=== PATIENT | female | born 1945 | race Caucasian/White ===

== ENCOUNTER 2017-10-01 11:34 | Inpatient (IN) | payer MEDICARE, SELFPAY ==
[2017-10-01] VITALS (9 sets, daily range): BP systolic 117–151; BP diastolic 44–86; PULSE 66–110; RESP 14–18; TEMP 36.6–37.3; O2SAT 96–99; BMI 30.2; BMI 30.1
[2017-10-01 12:21] LABS: Absolute Lymphocyte Count 1.19 X10^3/ul (0.83-4.51); Absolute Neutrophil Count 2.5 X10^3/uL (2.0-7.7); Basophil# 0.01 X10^3/uL; Basophil% 0.2 % (0-1); Eosinophil# 0.13 X10^3/uL; Hematocrit 26.2 % (37-47); Hemoglobin 9.2 g/dl (12.0-15.0); Lymphocyte # 1.19 X10^3/ul (4.0); Lymphocyte % 27.7 % (19-41); Mean Corp Hgb Conc 35.1 g/gl (32-36); Mean Corpuscular Hgb 35.7 pg (27.0-32.0); Mean Corpuscular Volume 101.6 fL (81-99); Mean Platelet Vol. 8.2 fl (6.2-12.0); Monocyte# 0.42 X10^3/uL; Monocyte% 9.8 % (0-10); Neutrophil # 2.53 X10^3/uL (2.7-7.7); Neutrophil % 59.1 % (47-70); Platelet Count 124 K/mm3 (150-450); RBC Distribution Width SD 61.7 fl (35.1-43.9); Red Blood Count 2.58 M/mm3 (4.2-5.4); White Blood Count 4.3 K/mm3 (4.4-11.0)
[2017-10-01 12:31] LABS: ALB/GLOB Ratio 0.7 RATIO (0.9-2.4); AST(SGOT) 54 U/L (15-37); Alanine Aminotransfer ALT/SGPT 46 U/L (12-78); Albumin, Serum 2.8 g/dL (3.4-5.0); Alkaline Phosphatase 105 U/L (45-117); Anion Gap 9 (5-15); BUN 23 mg/dL (7-18); BUN/Creat Ratio 22.8 RATIO (10-20); Chloride 107 mmol/L (98-107); Creatinine, Serum 1.01 mg/dL (0.55-1.02); EST Glomerular Filtration Rate 57 mL/min (>60); Est Glom Filt Rate - Afr Amer 69 mL/min (>60); Estimated Creatinine Clearance 37.99 ml/min; Globulin 4.2 g/dL (2.2-4.2); Glucose 224 mg/dL (70-110); Potassium 3.5 mmol/L (3.5-5.1); Sodium Level 141 mmol/L (136-145)
[2017-10-01 12:37] LABS: POSITIVE COUNT NO; POSITIVE DIFFERENTIAL NO; POSITIVE MORPHOLOGY NO
--- NOTE | 2017-10-01 12:54 | ED.DCSUM_ITS ---
- ER Visit Summary Date of Service: 10/01/17 Chief Complaint: Bleeding] History of Present Illness: The patient is a 71 F [resents to the emergency department chief complaint rectal bleeding that started this morning. Patient has a history of a rectal cancer with metastasis to the liver. Patient had CAT scans of the abdomen and chest that were performed earlier in the week and incidentally was found to have a pulmonary embolism. Patient was started on Xarelto couple days ago. Patient states her last chemotherapy was 2 weeks ago. Patient denies any abdominal pain. She denies feeling lightheaded or dizzy. She denies any chest pain or shortness of breath.] Physical Examination: [HEENT-PERRLA, EOMI. Cranial nerves II through XII grossly intact. TMs clear. Mucous membranes moist. No adenopathy. Cardiovascular-regular rate and rhythm without murmur or ectopy Lungs-clear to auscultation, chest wall stable without crepitus or subcu emphysema Abdomen-normoactive bowel sounds, soft, nontender, no rebound or rigidity, no peritoneal signs. Rectal exam-the rectum is thickened and patient is noted to have gross blood on exam. Extremities-intact ?4, normal range of motion, normal pulses, atraumatic] Test Results: [CBC with differential obtained showed a white blood cell count 4.3, hemoglobin 9.2, hematocrit 26, platelets 124. Chemistries unremarkable. LFTs unremarkable. Orthostatic vital signs pending] Emergency Department Course and Treatment: I discussed case initially with Dr. Suzanna Laura who is the surgeon on-call who was comfortable with keeping the patient at this hospital for further workup and evaluation.] Treatment Plan: [Admit] Disposition: [Admit] Impression: [Lower GI bleeding-stable] This note was generated with [employer] dictation software. It may contain incorrect words, spelling, and punctuation that were not noted in review of the chart prior to signing ED Disposition - Plan for ED Patient: Chief Complaint: GI Bleed Referrals: Annetta Carey DO [Primary Care Provider] -
--- NOTE | 2017-10-01 13:12 | HP.PCM_ITS ---
Problem List (1) GI bleed Status: Acute Qualifiers: GI bleed type/associated pathology: anorectal hemorrhage Qualified Code(s) : K62.5 - Hemorrhage of anus and rectum (2) Adenocarcinoma of sigmoid colon Status: Chronic (3) HTN (hypertension) Status: Chronic Qualifiers: Hypertension type: essential hypertension Qualified Code(s): I10 - Essential (primary) hypertension (4) Diabetes mellitus, type II Status: Chronic Qualifiers: Diabetes mellitus complication status: with unspecified complications Diabetes mellitus dedicated intermodal truck driver insulin use: with fci use Qualified Code(s) : E11.8 - Type 2 diabetes mellitus with unspecified complications; Z79.4 - prison (current) use of insulin (5) Depression with anxiety Status: Chronic History of Present Illness Date of Admission: 10/01/17 Chief Complaint: Rectal bleeding- 1 day The patient is a 71 year old F with past medical history of rectal cancer status post chemotherapy, follows up with [facility] oncology , recently diagnosed with pulmonary embolism, started on Xarelto 2 days ago comes in with complaints of rectal bleed. Patient was woken up from bed with a advised to move her bowels, and did not quite make it to the bathroom when she started to be incontinent of blood. Bright red in color, filled her whole toilet bowel, associated with dizziness and palpitations but no chest pain. She denied any abdominal cramps or discomfort. Vitals in the ED showed temperature of 90 8.2F, heart rate of 110, blood pressure is 138/44, patient was positively orthostatic, SPO2 was 98% on room air Laboratory investigations showed Hb of 9.2, with a hemoglobin was 10.6, WBC count was 4.3, platelets of 124, sodium 141 potassium 3.5 chloride 107 bicarbonate 25 creatinine 101 BUN 23. She recently had a CT scan of the abdomen/pelvis and chest done in the [facility] system was diagnosed incidentally with pulmonary embolism. Her last chemotherapy was 2 weeks ago. Past Medical History Past Medical History (Chronic Problems): Chronic Problems Normochromic normocytic anemia (Chronic) Colon cancer metastasized to liver (Chronic) Colon cancer metastasized to lung (Chronic) Adenocarcinoma of sigmoid colon (Chronic) HTN (hypertension) (Chronic) Diabetes mellitus, type II (Chronic) Depression with anxiety (Chronic) Allergies metoclopramide [From Reglan] Adverse Reaction (Verified 10/01/17 11:36) Other ANXIETY, RESTLESSNESS Home Medications: Ambulatory Orders Medication Instructions Recorded Ramipril [Altace] 10 mg PO DAILY 03/02/15 Metformin HCl [Metformin HCl ER] 1,000 mg PO DAILY 04/18/16 Insulin Aspart [Novolog Flexpen] 10 units SC TID 12/08/16 Venlafaxine HCl [Effexor Xr] 112.5 mg PO DAILY 01/24/17 Clopidogrel Bisulfate [Plavix] 75 mg PO DAILY 01/25/17 Insulin Detemir [Levemir FlexPen] 100 units SC DAILY 09/23/17 Linacolotide [Linzess] 145 mcg PO DAILY 09/23/17 Omeprazole [Prilosec] 20 mg PO DAILY 09/23/17 Triamterene [Dyrenium] 25 mg PO DAILY 09/23/17 Surgical History: hysterectomy, - - R TKR, Hysterectomy/BLSOO. 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 Denies: Anorexia, Chills, Fever, Night Sweats, Weight Change Eyes: Denies: Blurred vision, Cataracts, Conjunctivae Inflammation, Pain, Redness HEENT: Denies: Difficulty Hearing, Difficulty Swallowing, Head Aches, Hearing Changes, Sinus Congestion, Sinus Drainage Cardiovascular: Reports: Light Headedness, Palpitations. Denies: Chest Pain, Claudication, Chest Pressure Respiratory: Denies: Cough, Shortness of breath at rest, Shortness of breath upon exertion, Sputum production Gastrointestinal: Reports: Diarrhea, Hematochezia. Denies: Abdominal Pain, Hematemesis, Nausea, Vomiting Genitourinary: Denies: Dysuria, Frequency, Incontinence Gynecological: Denies: Breast symptoms Musculoskeletal: Denies: Joint Pain, Joint stiffness, Joint swelling, Joint Tenderness Skin: Denies: Rash, Wounds Neurological: Denies: Difficulty swallowing, Focal weakness, Numbness, Tingling Psychiatric: Denies: Anxiety, Depression, Homicidal Ideations, Suicidal Ideations Hematologic/ Lymphatic: Denies: Easy Bruising, Easy Bleeding VTE Information - Inpt Only VTE Present on Admission: No VTE Mechan Device Prophylaxis: SCD's VTE Pharm Prophylaxis ordered?: No Reason prophylaxis not ordered:: Medical Contraindication - ACUTE GI BLEED Patient Problems: Active and Suspected Problems GI bleed (Acute) - Physical Exam General: Alert, Oriented x3, Cooperative, No apparent distress HEENT: Atraumatic, PERRLA, EOMI, Normocephalic Oral: Moist Mucosa Neck: Supple Lungs: Clear to auscultation, Normal air movement Cardiovascular: Regular rate, Regular Rhythm, Normal S1, Normal S2, No murmurs Abdomen: Bowel Sounds Present, Soft, Non Tender, Non-Distended Extremities: No edema Skin: No rashes, No breakdown Musculoskeletal: No Tenderness to Palpation of Joints or Extremities Lymphatic: No Cervical, Supraclavicular, or Inguinal Adenopathy Neurological: Cranial nerves II-XII grossly intact Psych/Mental Status: Normal Affect, Appropriate Vital Signs Temp Pulse Resp BP Pulse Ox 98.2 F 68 17 145/70 H 98 10/01/17 11:36 10/01/17 12:56 10/01/17 11:36 10/01/17 12:56 10/01/17 11:36 Oxygen Delivery Method Room Air Weight: 72.5 kg Body Mass Index (BMI) 30.2 Finger Stick Blood Glucose 340 Laboratory Tests Past 24 Hrs 10/01/17 10/01/17 10/01/17 12:05 12:05 12:25 WBC 4.3 L RBC 2.58 L Hgb 9.2 L Hct 26.2 L MCV 101.6 H MCH 35.7 H MCHC 35.1 RDW 17.0 H RDW Differential 61.7 H Plt Count 124 L MPV 8.2 Immature Gran % (Auto) 0.200 Neut % (Auto) 59.1 Lymph % (Auto) 27.7 [place] % (Auto) 9.8 Eos % (Auto) 3.0 Baso % (Auto) 0.2 Absolute Neuts (auto) 2.5 Absolute Lymphs (auto) 1.19 Total Counted Not Reportable Sodium 141 Potassium 3.5 Chloride 107 Carbon Dioxide 25.0 Anion Gap 9 BUN 23 H Creatinine 1.01 Estim Creat Clear Calc 37.99 Est GFR (MDRD) Af Amer 69 Est GFR (MDRD) Non-Af 57 L BUN/Creatinine Ratio 22.8 H Glucose 224 H Calcium 9.0 Total Bilirubin 0.30 AST 54 H ALT 46 Alkaline Phosphatase 105 Total Protein 7.0 Albumin 2.8 L Globulin 4.2 Albumin/Globulin Ratio 0.7 L Blood Type Pending Antibody Screen Pending Assessment/Plan Active and Suspected Problems GI bleed (Acute) 71-year-old female with past medical history of metastatic colon cancer with metastases to liver and lung, following with oncology in the [facility] system, hypertension, type II DM, comes in with complaints of diarrhea and rectal bleeding ongoing for 1 day. 1. Acute GI bleed, likely lower, history of metastatic colon cancer secondary to recently started anticoagulation for PE, Xarelto. Plan:, Admit patient to PCU, monitor vitals closely, H&H every 6 hourly, type and crossmatch against 2 units of blood and hold, Xarelto, general surgery consulted - Dr. Suzanna Laura-agreed to see patient. I explained in depth with patient and her family about the plan of care, aware that if she continues to bleed, we will transfuse, possible intervention including colonoscopy. They are also aware that we will stop the Xarelto and agree to the plan. 2. Recent pulmonary embolism, discovered incidentally on chest CT, status post anticoagulation with heparin and Xarelto 2 days ago, would hold Xarelto because risks of bleeding is higher. Patient voiced understanding and agrees to the plan. 3. Hypertension, controlled, would hold home medications in light of ongoing bleeding, will monitor vitals closely and give as needed hydralazine 4. Type 2DM, on insulin, will continue home regimen with Accu-Cheks and insulin sliding scale 5. DVT PPx - SCDs- no chemoprophylaxis on account of GI bleed 6. Code status: Spent more than 15 minutes discussing status with the patient, explaining the differences between full code, DNR CCA and DNR CC, answered all questions and patient opted for DNR-CC, confirmed by patient that HCPNAHUN is her daughter. Her daughter has a living will paperwork as well as advanced directives. Code Visit Inpatient E&M: 03215 Init Hosp L3
[2017-10-01] MEDS: 0.9% Normal Saline 1,000 ML 125 ML IV ×2 (13:37→21:02)
--- NOTE | 2017-10-01 14:33 | PCM.CONS.B ---
- Consult Date of Consult: 10/01/17 - Reason for Consult CHIEF COMPLAINT: rectal bleeding HPI: 71 y/o WF with metastatic colon cancer to the liver, recently diagnosed with PE, on xarelto, presents with rectal bleeding and low Hgb ?? s/p 6 cycles of FOLFOX (02/07/2017 - 05/19/17) with NV, now on xeloda (2 weeks on, 1 week off, last dose supposed to be 09/23, but she stopped earlier on 09/21 due to n/v/diarrhea/dehydration/tiredness) and Avastin since 07/08/17 (next dose on 09/30) CT 09/28/16 showed increased size of lung nodules but decreased size in liver mets, also incidentally found to have subacute to chronic pulmonary embolism in the right lower lobe basilar segmental (common channel) and subsegmental artery level (new since Jun 2017) Lower extremity doppler exam to look for DVT was negative (09/29/17) She tolerated heparin gtt without signs of bleeding. She was discharged on 09/29 with Xarelto for AC. The Plavix for which she was taking for a possible stroke 20 years ago has been discontinued. Had GI bleed in past with avastin, but this resolved and she was restarted on Avastin, presently off for a week due to patient's request. ? PAST MEDICAL HISTORY Anxiety state, unspecified ? Coronary artery disease ? 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 Hemorrhage of rectum and anus ? HTN (hypertension) ? Internal hemorrhoids without mention of complication ? Rash and other nonspecific skin eruption ? Rectal cancer ? Type II or unspecified type diabetes mellitus without mention of complication, not stated as uncontrolled ? Unspecified constipation ? Unspecified essential hypertension ? Unspecified hemorrhoids without mention of complication ? PAST SURGICAL HISTORY COLONOSCOP W/ OR W/O BRSH SPEC ? 09/21/07 EGD W/O OR W/BRUSH/WASH ? 06/10/16 HEART CATHETERIZATION ? 2013 HYSTEROSCOPY, SURG; REMOVE FB ? 1994 KNEE RIGHT OP SURGERY 1998 RIGHT TOTAL ABDOM HYSTERECTOMY ? 1994 TOTAL KNEE REPLACEMENT 2003 RIGHT TUNNEL VAD W SUB Q PORT >=5 Right 02/16/2017 ? FAMILY HISTORY Cancer Maternal Grandmother ? Heart Maternal Grandmother ? Heart Maternal Uncle ? Hypertension Mother ? Stroke Mother ? Heart Mother ? Diabetes Sister SOCIAL HISTORY ? Marital status: Smoking status: Never Smoker ? Smokeless status: Never Used Alcohol use: No Drug use: No Sexual activity: Not Currently ? ALLERGIES Ritalin [Methylphen* Other: See Comments jumpy CURRENT?MEDICATIONS rivaroxaban (XARELTO) 15 mg (42)- 20 mg (9) DsPk capecitabine (XELODA) 500 mg tablet 3 tabs (1500mg) in the AM, 2 tabs (1000mg) in the PM. Take for 14 days, then 1 week off mirtazapine (REMERON) 15 mg tablet Take 15 mg by mouth daily at bedtime. ondansetron (ZOFRAN) 8 mg tablet Take 1 tablet by mouth every 8 hours as needed for Nausea/Vomiting. venlafaxine ER (EFFEXOR XR) 37.5 mg 24 hr capsule ? metFORMIN ER (GLUMETZA) 1,000 mg 24 hr tablet ? LEVEMIR FLEXTOUCH 100 unit/mL (3 mL) inpn injection ? triamterene-hydrochlorothiazide (MAXZIDE-25) 37.5-25 mg per tablet ? ramipril(ALTACE 10 MG CAP) Take one(1) capsule daily. REVIEW OF SYSTEMS: GENERAL: Negative for weight loss, malaise or fevers HEENT: Negative for headaches, changes in hearing or vision NECK: Negative for lumps or swelling, neck pain or stiffness LUNGS: Negative for cough, wheezing or shortness of breath. CVS: Negative for chest pain, palpitations or leg swelling. GI: Negative abdominal pain : Negative for dysuria MSK: Negative for joint pain or myalgia SKIN: Negative for rash, or bruises. NEURO: Negative for seizures. ENDO: has diabetes. PSYCHIATRIC: Negative for sleep disturbance, no mood disorder ?? PHYSICAL EXAMINATION: BP 137/70 Pulse 104 Temp 98.2F Resp 18 Wt 160 lb General: No acute distress. A&O x3. No pallor, icterus, or cyanosis. Skin: negative for rashes, ecchymosis, or petechiae. Right infraclavicular port; no tenderness, swelling or redness. HEENT: Oral mucous membranes moist. No oral ulcers or thrush. Sclerae white. Chest: right sided upper chest portacath in place Abdomen: soft, nontender, nondistended. Bowel sounds WNL. No ascites. No epigastric pain Extremities: negative for edema Neck: no masses appreciated. ?? Impression: rectal bleeding, rectal cancer mets to lungs/liver, anticoagulation for PE ? Plan discontinue xarelto and any other anticoagulants, supportive care if continues with bleeding/etc. will consider colonoscopy, and if unable to control bleeding with this, may require transanal exploration to stop bleeding (hopefully this will not be needed) I have discussed this with patient and her daughter who is present with her. consideration for using eliquis? after stable will follow patient with you
--- NOTE | 2017-10-01 14:42 | CON.PCM_ITS ---
- Consult Date of Consult: 10/01/17 - Reason for Consult CHIEF COMPLAINT: rectal bleeding HPI: 71 y/o WF with metastatic colon cancer to the liver, recently diagnosed with PE, on xarelto, presents with rectal bleeding and low Hgb ?? s/p 6 cycles of FOLFOX (02/07/2017 - 05/19/17) with NV, now on xeloda (2 weeks on, 1 week off, last dose supposed to be 09/23, but she stopped earlier on 09/21 due to n/v/diarrhea/dehydration/tiredness) and Avastin since 07/08/17 (next dose on 09/30) CT 09/28/16 showed increased size of lung nodules but decreased size in liver mets, also incidentally found to have subacute to chronic pulmonary embolism in the right lower lobe basilar segmental (common channel) and subsegmental artery level (new since Jun 2017) Lower extremity doppler exam to look for DVT was negative (09/29/17) She tolerated heparin gtt without signs of bleeding. She was discharged on 09/29 with Xarelto for AC. The Plavix for which she was taking for a possible stroke 20 years ago has been discontinued. Had GI bleed in past with avastin, but this resolved and she was restarted on Avastin, presently off for a week due to patient's request. ? PAST MEDICAL HISTORY Anxiety state, unspecified ? Coronary artery disease ? 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 Hemorrhage of rectum and anus ? HTN (hypertension) ? Internal hemorrhoids without mention of complication ? Rash and other nonspecific skin eruption ? Rectal cancer ? Type II or unspecified type diabetes mellitus without mention of complication , not stated as uncontrolled ? Unspecified constipation ? Unspecified essential hypertension ? Unspecified hemorrhoids without mention of complication ? PAST SURGICAL HISTORY COLONOSCOP W/ OR W/O BRSH SPEC ? 09/21/07 EGD W/O OR W/BRUSH/WASH ? 06/10/16 HEART CATHETERIZATION ? 2013 HYSTEROSCOPY, SURG; REMOVE FB ? 1994 KNEE RIGHT OP SURGERY 1998 RIGHT TOTAL ABDOM HYSTERECTOMY ? 1994 TOTAL KNEE REPLACEMENT 2003 RIGHT TUNNEL VAD W SUB Q PORT >=5 Right 02/16/2017 ? FAMILY HISTORY Cancer Maternal Grandmother ? Heart Maternal Grandmother ? Heart Maternal Uncle ? Hypertension Mother ? Stroke Mother ? Heart Mother ? Diabetes Sister SOCIAL HISTORY ? Marital status: Smoking status: Never Smoker ? Smokeless status: Never Used Alcohol use: No Drug use: No Sexual activity: Not Currently ? ALLERGIES Ritalin [Methylphen* Other: See Comments jumpy CURRENT?MEDICATIONS rivaroxaban (XARELTO) 15 mg (42)- 20 mg (9) DsPk capecitabine (XELODA) 500 mg tablet 3 tabs (1500mg) in the AM, 2 tabs (1000mg ) in the PM. Take for 14 days, then 1 week off mirtazapine (REMERON) 15 mg tablet Take 15 mg by mouth daily at bedtime. ondansetron (ZOFRAN) 8 mg tablet Take 1 tablet by mouth every 8 hours as needed for Nausea/Vomiting. venlafaxine ER (EFFEXOR XR) 37.5 mg 24 hr capsule ? metFORMIN ER (GLUMETZA) 1,000 mg 24 hr tablet ? LEVEMIR FLEXTOUCH 100 unit/mL (3 mL) inpn injection ? triamterene-hydrochlorothiazide (MAXZIDE-25) 37.5-25 mg per tablet ? ramipril(ALTACE 10 MG CAP) Take one(1) capsule daily. REVIEW OF SYSTEMS: GENERAL: Negative for weight loss, malaise or fevers HEENT: Negative for headaches, changes in hearing or vision NECK: Negative for lumps or swelling, neck pain or stiffness LUNGS: Negative for cough, wheezing or shortness of breath. CVS: Negative for chest pain, palpitations or leg swelling. GI: Negative abdominal pain : Negative for dysuria MSK: Negative for joint pain or myalgia SKIN: Negative for rash, or bruises. NEURO: Negative for seizures. ENDO: has diabetes. PSYCHIATRIC: Negative for sleep disturbance, no mood disorder ?? PHYSICAL EXAMINATION: BP 137/70 Pulse 104 Temp 98.2F Resp 18 Wt 160 lb General: No acute distress. A&O x3. No pallor, icterus, or cyanosis. Skin: negative for rashes, ecchymosis, or petechiae. Right infraclavicular port ; no tenderness, swelling or redness. HEENT: Oral mucous membranes moist. No oral ulcers or thrush. Sclerae white. Chest: right sided upper chest portacath in place Abdomen: soft, nontender, nondistended. Bowel sounds WNL. No ascites. No epigastric pain Extremities: negative for edema Neck: no masses appreciated. ?? Impression: rectal bleeding, rectal cancer mets to lungs/liver, anticoagulation for PE ? Plan discontinue xarelto and any other anticoagulants, supportive care if continues with bleeding/etc. will consider colonoscopy, and if unable to control bleeding with this, may require transanal exploration to stop bleeding ( hopefully this will not be needed) I have discussed this with patient and her daughter who is present with her. consideration for using eliquis? after stable will follow patient with you
[2017-10-01 15:26] LABS: Hematocrit 24.6 % (37-47); Hemoglobin 8.6 g/dl (12.0-15.0)
[2017-10-01 16:30] LABS: Bedside Glucose 88 mg/dL (70-110)
[2017-10-01] MEDS: 0.9% NaCl Peripheral Flush Adult/Peds IV (20:11)
[2017-10-01 20:21] LABS: Hematocrit 24.6 % (37-47); Hemoglobin 8.5 g/dl (12.0-15.0)
[2017-10-01] MEDS: Mirtazapine 15 MG Tablet PO (22:16)
[2017-10-01 22:21] LABS: Bedside Glucose 133 mg/dL (70-110)
[2017-10-02 03:07] VITALS: PULSE 67
[2017-10-02 03:55] VITALS: BP 124/68; PULSE 83; RESP 16; TEMP 37.4; O2SAT 97
[2017-10-02] MEDS: 0.9% NaCl Peripheral Flush Adult/Peds IV (05:01)
[2017-10-02] MEDS: 0.9% Normal Saline 1,000 ML 125 ML IV (05:16)
[2017-10-02 05:31] LABS: Hematocrit 24.5 % (37-47); Hemoglobin 8.6 g/dl (12.0-15.0)
[2017-10-02 06:57] VITALS: PULSE 73
[2017-10-02 07:01] LABS: Bedside Glucose 138 mg/dL (70-110)
[2017-10-02 09:21] VITALS: BP 120/64; PULSE 89; RESP 16; TEMP 36.7; O2SAT 98
--- NOTE | 2017-10-02 10:26 | PCM.PN.SRG ---
Patient Problems: Active and Suspected Problems GI bleed (Acute) Subjective: patient denies fevers, feels overall well - Physical Exam General: Alert, Oriented x3 Oral: Moist Mucosa Neck: Supple Lungs: Normal air movement Abdomen: Soft Vital Signs Temp Pulse Resp BP Pulse Ox 98.0 F 89 16 120/64 98 10/02/17 09:21 10/02/17 09:21 10/02/17 09:21 10/02/17 09:21 10/02/17 09:21 Oxygen Delivery Method Room Air Weight: 72.3 kg Body Mass Index (BMI) 30.1 Intake and Output for Last 24 Hours 09/30/17 10/01/17 10/02/17 23:59 23:59 23:59 Intake Total 1610 / 1610 741 / 741 Output Total 600 / 600 500 / 500 Balance 1010 / 1010 241 / 241 Laboratory Tests Past 24 Hrs 10/01/17 10/01/17 10/02/17 15:15 20:05 05:00 Hgb 8.6 L 8.5 L 8.6 L Hct 24.6 L 24.6 L 24.5 L POC Glucose 10/02/17 10/01/17 10/01/17 06:50 22:12 16:24 POC Glucose 138 H 133 H 88 Assessment/Plan Active and Suspected Problems GI bleed (Acute) Impression: GI bleed from rectal cancer on xarelto Plan: Patient has had bowel movement with no further bleeding Hgb has remained stable doubt surgical intervention required at this point can restart anticoagulation - ?something other than xarelto?
--- NOTE | 2017-10-02 10:42 | PCM.DC ---
- Discharge Diagnoses Current Active Problems: Current Active and Chronic Problems GI bleed (Acute) Reason(s) for Visit for Discharge Instructions: Rectal bleeding You will use the following diet at home:: Calorie/Carbohydrate Controlled (specify 1200, 1400, etc), Cardiac Your food should be the consistency of: Regular Your liquids should be the consistency of: Regular/Thin Discharge Activity: Return to Normal Activity Additional Instructions: Follow-up with your oncologist to decide upon starting anticoagulation as discussed. Come back to the ED if you notice anymore bleeding. Allergies/Adverse Reactions: Allergies metoclopramide [From Reglan] Adverse Reaction (Verified 10/01/17 11:36) Other ANXIETY, RESTLESSNESS Medications to take at Discharge Ramipril [Altace] 10 mg PO DAILY 03/02/15 Metformin HCl [Metformin HCl ER] 1,000 mg PO DAILY 04/18/16 Insulin Aspart [Novolog Flexpen] 0 units SC PRN PRN 12/08/16 Insulin Detemir [Levemir FlexPen] 100 units SC DAILY 09/23/17 Mirtazapine [Remeron] 15 mg PO QHS 10/01/17 Ondansetron [Zofran] 8 mg PO Q8H PRN PRN 10/01/17 Triamterene 37.5MG/Hctz 25MG [Maxzide 37.5 mg-25 mg Tablet] 1 tablet PO DAILY 10/01/17 Venlafaxine XR [Effexor Xr] 37.5 mg PO DAILY 10/01/17 Primary Care Physician: Annetta Carey DO [Primary Care Provider] - Please follow up with your Primary Care Physician in: within 1 week Proposed Discharge Date: 10/02/17
[2017-10-02 10:59] VITALS: PULSE 70
--- NOTE | 2017-10-02 11:15 | PCM.DC.SUM ---
Discharge Date and Diagnosis Date of Admission: 10/01/17 Date of Discharge: 10/02/17 - Primary Discharge Diagnosis Active and Suspected Problems GI bleed (Acute) - Secondary Discharge Diagnosis Chronic Problems Normochromic normocytic anemia (Chronic) Colon cancer metastasized to liver (Chronic) Colon cancer metastasized to lung (Chronic) Adenocarcinoma of sigmoid colon (Chronic) HTN (hypertension) (Chronic) Diabetes mellitus, type II (Chronic) Depression with anxiety (Chronic) Hospital Course and Treatment None Operations: None Procedures: None Summary of Care Provided: 71-year-old female with past medical history of metastatic colon cancer with metastases to liver and lung, following with oncology in the [facility], hypertension, type II DM, comes in with complaints of diarrhea and rectal bleeding ongoing for 1 day. 1. Acute GI bleed, likely lower, history of metastatic colon cancer secondary to recently started anticoagulation for PE, Xarelto. Monitored on telemetry bed in the hospital. Xarelto discontinued, no more bleeding seen. General surgery consulted, no further recommendations. Discussed in depth with the patient, risks and benefits of restarting anticoagulation, discussed options of starting Eliquis for anticoagulation for PE vs following up with her oncologist in the outpatient to decide on risks and benefits of anticoagulation, patient was hesitant on starting on Eliquis, said she will call her oncologist tomorrow morning to discuss. 2. Anemia of chronic disease, hemoglobin remained stable 2. Recent pulmonary embolism, discovered incidentally on chest CT, status post anticoagulation with heparin and Xarelto 2 days ago, off anticoagulation, patient to decide on whether she wants to restart Eliquis for secondary prevention of DVT and PE. Would not recommend discharge on Xarelto. 3. Hypertension, controlled, resume home meds 4. Type 2DM, on insulin, on insulin Discharge Diet: Carb Control Diet Discharge Activity: Return to Normal Activity Home Medications: Medications to take at Discharge Ramipril [Altace] 10 mg PO DAILY 03/02/15 Metformin HCl [Metformin HCl ER] 1,000 mg PO DAILY 04/18/16 Insulin Aspart [Novolog Flexpen] 0 units SC PRN PRN 12/08/16 Insulin Detemir [Levemir FlexPen] 100 units SC DAILY 09/23/17 Mirtazapine [Remeron] 15 mg PO QHS 10/01/17 Ondansetron [Zofran] 8 mg PO Q8H PRN PRN 10/01/17 Triamterene 37.5MG/Hctz 25MG [Maxzide 37.5 mg-25 mg Tablet] 1 tablet PO DAILY 10/01/17 Venlafaxine XR [Effexor Xr] 37.5 mg PO DAILY 10/01/17 Primary Care Physician: Annetta Carey DO [Primary Care Provider] - Please follow up with your Primary Care Physician in: within 1 week Disposition: Home Minutes spent on discharge:: 25 Patient Condition:: Stable Meaningful Use Info Meaningful Use Diagnoses (Choose all that apply): None applicable Code Visit Inpatient E&M: 27706 Disch Hosp
[2017-10-02 11:26] LABS: Bedside Glucose 283 mg/dL (70-110)
== END 2017-10-02 13:00 | disposition home or self-care (01) | DRG 378 ==
LOC: ED 12:18 → PCU 13:45
PROVIDERS: Internal Medicine; Admitting Provider Internal Medicine; Emergency Provider Emergency Medicine; Family Provider Internal Medicine; PCP Internal Medicine; Visit Provider Internal Medicine
DX: K62.5 Hemorrhage of anus and rectum (principal); C18.7 Malignant neoplasm of sigmoid colon; C78.00 Secondary malignant neoplasm of unspecified lung; C78.7 Secondary malignant neoplasm of liver and intrahepatic bile duct; E11.8 Type 2 diabetes mellitus with unspecified complications; I27.82 Chronic pulmonary embolism; D63.8 Anemia in other chronic diseases classified elsewhere; T45.515A Adverse effect of anticoagulants, initial encounter; Y92.9 Unspecified place or not applicable; I25.10 Atherosclerotic heart disease of native coronary artery without angina pectoris; I10 Essential (primary) hypertension; F32.9 Major depressive disorder, single episode, unspecified; F41.9 Anxiety disorder, unspecified; Z96.651 Presence of right artificial knee joint; Z86.711 Personal history of pulmonary embolism; Z79.01 Long term (current) use of anticoagulants; Z79.02 Long term (current) use of antithrombotics/antiplatelets; Z79.4 Long term (current) use of insulin; Z79.899 Other long term (current) drug therapy; Z86.718 Personal history of other venous thrombosis and embolism
CPT/HCPCS: 36591; 80053; 82962; 85014; 85018; 85025; 86850; 86900; 86920; 99285; J7030; A4216

== ENCOUNTER → 2017-10-28 16:46 | Outpatient (CLI) | payer MEDICARE, SELFPAY ==
--- NOTE | 2017-10-28 16:48 | CT_ITS ---
CT Abdomen And Pelvis W/O Contrast INDICATION: BACKACHE, HEMATURIA, COLON CA W/ LIVER/LUNG METS-CHEMO COMPARISON: December 08, 2016 TECHNIQUE: Axial CT imaging of the abdomen and pelvis without contrast. Coronal and sagittal reformatted images. Radiation dose optimization technique applied. FINDINGS: Pulmonary nodules are seen at the lung bases including a 2.6 cm mass at the left lung base. Heart size is within normal limits. Liver contains multiple hypodense lesions compatible with metastatic disease, measuring up to 4.5 cm in size. Gallbladder is unremarkable. Spleen contains multiple calcified granulomas. Adrenal glands and pancreas demonstrate grossly unremarkable noncontrast CT appearance. Kidneys are without evidence of nephrolithiasis or hydronephrosis. Bowel loops are nondistended. Scattered sigmoid diverticuli are present. Diffuse thickening is noted at the rectum, not fully included in the [id number]. Urinary bladder appears grossly unremarkable. CT/Abdomen/Pelvis without Cont IMPRESSION: Masses in the lung bases and in the liver compatible with given history of metastatic disease. No evidence of urolithiasis or hydronephrosis. Soft tissue thickening at the level of the rectum, not fully included in [id number]. at 1721 Reported and signed by: Chana Jessica MD Electronically Signed: Chana Jessica MD at 16:19 EST Tel , Service support ,
== END ==
PROVIDERS: Family Provider Internal Medicine; PCP Internal Medicine; Visit Provider Internal Medicine
DX: M54.9 Dorsalgia, unspecified (principal)
CPT/HCPCS: 74176

== ENCOUNTER 2017-11-09 13:00 | Inpatient (IN) | payer MEDICARE, SELFPAY ==
[2017-11-09] VITALS (9 sets, daily range): BP systolic 129–144; BP diastolic 61–97; PULSE 97–104; RESP 16–18; TEMP 36.3–37.2; O2SAT 93–100; BMI 29.4; BMI 29.2; BMI 29.5
--- NOTE | 2017-11-09 15:07 | CT_ITS ---
STUDY: CT ABDOMEN AND PELVIS WITHOUT CONTRAST REASON FOR EXAM: Female, 71 years old. Low back pain. Vomiting. History of rectal carcinoma and metastasis. RADIATION DOSAGE (If Supplied By Facility): CTDIvol = ( 9.17 ) mGy, DLP = ( 467.23 ) mGycm TECHNIQUE: Transaxial images were obtained from the dome of the diaphragm to the symphysis pubis without oral contrast, and without intravenous contrast. Sagittal and coronal images were reconstructed. Individualized dose optimization techniques were used for this CT. COMPARISON: Comparison is made with prior study dated October 28, 2017. FINDINGS: There is a 4.7 mm noncalcified nodule in the lateral aspect of the right lower lobe. There is also evidence of a 3.1 cm x 2.4 cm lobulated nodule in the lateral aspect of the left lower lobe. Coronary artery calcification. Once again, there are multiple hypodense masses in the right and left lobe of the liver in keeping with metastatic disease. This is unchanged. Normal gallbladder and extrahepatic biliary system. There are multiple benign calcified granulomata of the spleen. Normal pancreas. Normal bilateral adrenal glands. Normal right kidney. Normal left kidney. There is a small hiatal hernia. Normal small intestine. Moderate amount of fecal material is seen in the colon. Scattered sigmoid diverticula. The appendix is visualized and appears normal. Normal abdominal aorta. Normal inferior vena cava. Normal retroperitoneum. Normal urinary bladder. Normal abdominal wall. There are diffuse degenerative changes of the visualized lumbar spine. CT/Abdomen/Pelvis without Cont IMPRESSION: Stable pulmonary nodules. Stable liver metastasis. Moderate amount of fecal material is seen in the colon. Electronically Signed: Donavon Schulte MD at 16:03 EST Tel [phone], Service support ,
--- NOTE | 2017-11-09 15:10 | ED.VISSUMM ---
- ER Visit Summary Date of Service: 11/09/17 Chief Complaint: Hematemesis and low back pain History of Present Illness: The patient is a 71 F with 3 episodes of vomiting blood clots today. Patient also complains of sciatica pain that has been getting worse over the past several days. Patient states her sciatica pain radiates down her left lower extremity to her knee. Patient states she vomited 3 times since early this morning and it appeared as though there were blood clots in her emesis. Patient denies any melena or hematochezia. Patient admits to some mild left lower quadrant abdominal pain. Patient is currently on Plavix. She denies any abdominal pain. Patient denies any fevers or chills. Patient denies any chest pain or shortness of breath. Physical Examination: Vital signs are stable. Patient is afebrile. Patient is in no acute distress. Oral mucosa is pink and moist. Heart was regular rate and rhythm. Lungs are clear and equal bilaterally. There is good respiratory effort noted. Abdomen is soft. Bowel sounds are normal. There is some mild left lower quadrant tenderness. There is no rebound or guarding noted. Cranial nerves II through XII are intact. There are no focal motor or sensory deficits noted. Test Results: Hemoglobin was stable at 10.7. BUN was slightly elevated at 26. CT scan of the abdomen and pelvis showed metastatic disease in the liver and lower lobes of the lung. There is constipation noted. Rectal exam showed brown stool that was Hemoccult positive. Emergency Department Course and Treatment: Case was discussed with the hospitalist he recommended consulting Dr. Dale from her neurology. I discussed the case with Dr. Dale. He recommended starting the patient on IV Protonix. Patient was given a dose of IV Protonix here. Patient will be admitted to the PCU service of Dr. Yao Disposition: Admit to PCU Impression: Gastrointestinal bleeding This note was generated with [employer] dictation software. It may contain incorrect words, spelling, and punctuation that were not noted in review of the chart prior to signing ED Disposition - Plan for ED Patient: Disposition: Acute Care Hospital [facility] Chief Complaint: GI Bleed Diagnosis: GI bleed Referrals: Annetta Carey DO [Primary Care Provider] -
--- NOTE | 2017-11-09 15:13 | ED.DCSUM_ITS ---
- ER Visit Summary Date of Service: 11/09/17 Chief Complaint: Hematemesis and low back pain History of Present Illness: The patient is a 71 F with 3 episodes of vomiting blood clots today. Patient also complains of sciatica pain that has been getting worse over the past several days. Patient states her sciatica pain radiates down her left lower extremity to her knee. Patient states she vomited 3 times since early this morning and it appeared as though there were blood clots in her emesis. Patient denies any melena or hematochezia. Patient admits to some mild left lower quadrant abdominal pain. Patient is currently on Plavix. She denies any abdominal pain. Patient denies any fevers or chills. Patient denies any chest pain or shortness of breath. Physical Examination: Vital signs are stable. Patient is afebrile. Patient is in no acute distress. Oral mucosa is pink and moist. Heart was regular rate and rhythm. Lungs are clear and equal bilaterally. There is good respiratory effort noted. Abdomen is soft. Bowel sounds are normal. There is some mild left lower quadrant tenderness. There is no rebound or guarding noted. Cranial nerves II through XII are intact. There are no focal motor or sensory deficits noted. Test Results: Hemoglobin was stable at 10.7. BUN was slightly elevated at 26. CT scan of the abdomen and pelvis showed metastatic disease in the liver and lower lobes of the lung. There is constipation noted. Rectal exam showed brown stool that was Hemoccult positive. Emergency Department Course and Treatment: Case was discussed with the hospitalist he recommended consulting Dr. Dale from her neurology. I discussed the case with Dr. Dale. He recommended starting the patient on IV Protonix. Patient was given a dose of IV Protonix here. Patient will be admitted to the PCU service of Dr. Yao Disposition: Admit to PCU Impression: Gastrointestinal bleeding This note was generated with [employer] dictation software. It may contain incorrect words, spelling, and punctuation that were not noted in review of the chart prior to signing ED Disposition - Plan for ED Patient: Disposition: Acute Care Hospital [facility] Chief Complaint: GI Bleed Diagnosis: GI bleed Referrals: Annetta Carey DO [Primary Care Provider] -
[2017-11-09] MEDS: 0.9% Normal Saline 1,000 ML 125 ML IV (15:20)
[2017-11-09 15:42] LABS: ALB/GLOB Ratio 0.6 RATIO (0.9-2.4); AST(SGOT) 22 U/L (15-37); Alanine Aminotransfer ALT/SGPT 20 U/L (13-56); Alkaline Phosphatase 89 U/L (45-117); Anion Gap 10 (5-15); BUN 26 mg/dL (7-18); BUN/Creat Ratio 28.1 RATIO (10-20); Calcium,Total 9.4 mg/dL (8.5-10.1); Chloride 103 mmol/L (98-107); Creatinine, Serum 0.92 mg/dL (0.55-1.02); EST Glomerular Filtration Rate 63 mL/min (>60); Est Glom Filt Rate - Afr Amer 77 mL/min (>60); Estimated Creatinine Clearance 41.71 ml/min; Globulin 4.7 g/dL (2.2-4.2); Glucose 274 mg/dL (74-106); Lipase 57 U/L (73-393); Potassium 3.7 mmol/L (3.5-5.1); Protein, Total 7.7 g/dL (6.4-8.2); Sodium Level 136 mmol/L (136-145)
[2017-11-09] MEDS: Ondansetron 4 MG/2 ML Vial IV ×2 (16:00→21:25)
[2017-11-09 17:13] LABS: Color, Urine Yellow (Yellow); Glucose, Dipstick 1000 mg/dl (Normal); Ketone-Dipstick 5 mg/dl (Negative); Leukocyte Esterase-Dipstick 100 /ul (Negative); Nitrite-Dipstick Negative (Negative); Occult Blood-Urine 10 /ul (Negative); Protein-Dipstick 100 mg/dl (Negative); Urine Bilirubin Dipstick Negative (Negative); Urine Clarity Sl. Cloudy (Clear); Urine Urobilinogen Normal (Normal)
[2017-11-09 17:35] LABS: Absolute Lymphocyte Count 1.61 X10^3/ul (0.83-4.51); Absolute Neutrophil Count 6.1 X10^3/uL (2.0-7.7); Basophil# 0.01 X10^3/uL; Basophil% 0.1 % (0-1); Eosinophil# 0.08 X10^3/uL; Hematocrit 29.9 % (37-47); Hemoglobin 10.7 g/dl (12.0-15.0); Lymphocyte # 1.61 X10^3/ul (4.0); Lymphocyte % 19.6 % (19-41); Mean Corp Hgb Conc 35.8 g/gl (32-36); Mean Corpuscular Volume 94.9 fL (81-99); Mean Platelet Vol. 8.6 fl (6.2-12.0); Monocyte% 4.9 % (0-10); Neutrophil # 6.11 X10^3/uL (2.7-7.7); Neutrophil % 74.2 % (47-70); Platelet Count 186 K/mm3 (150-450); RBC Distribution Width CV 12.5 % (11.6-14.6); RBC Distribution Width SD 41.6 fl (35.1-43.9); Red Blood Count 3.15 M/mm3 (4.2-5.4); White Blood Count 8.2 K/mm3 (4.4-11.0)
[2017-11-09 17:37] LABS: POSITIVE COUNT NO; POSITIVE DIFFERENTIAL NO; POSITIVE MORPHOLOGY NO
[2017-11-09 19:11] LABS: Bedside Glucose 236 mg/dL (70-110)
--- NOTE | 2017-11-09 20:30 | ED.RN ---
PT REQUESTING PAIN MEDICINE, DR. PADRON AWARE.
--- NOTE | 2017-11-09 21:07 | PCM.HP.STD ---
Problem List (1) GI bleed Status: Acute Qualifiers: GI bleed type/associated pathology: anorectal hemorrhage Qualified Code(s): K62.5 - Hemorrhage of anus and rectum (2) Normochromic normocytic anemia Status: Chronic (3) Colon cancer metastasized to liver Status: Chronic (4) Colon cancer metastasized to lung Status: Chronic (5) Adenocarcinoma of sigmoid colon Status: Chronic (6) HTN (hypertension) Status: Chronic Qualifiers: (7) Diabetes mellitus, type II Status: Chronic Qualifiers: (8) Depression with anxiety Status: Chronic History of Present Illness Date of Admission: 11/09/17 Chief Complaint: Coffee-ground emesis, low back pain. The patient is a 71 year old F with past medical history as mentioned above presented to the emergency room because of coffee-ground emesis. Today, she had 4 episodes of coffee-ground emesis, dark vomitus with blood clots, small to moderate amount without associated symptoms and without aggravating or relieving factors. Also, she complained of low back pain and left hip pain, sharp pain, not radiating, stay to 9 out of 10 in severity, constant, no aggravating or relieving factors and no other associated symptoms. She does have a history of left-sided sciatica and she attributed her pain to this. On September,, she was admitted for rectal bleeding which is attributed to her metastatic colon cancer. During that admission, no upper EGD or colonoscopy performed and no blood transfusion given. Couple of months ago, she was started on Xarelto for PE and she is started having GI bleed as well as epistaxis for which Xarelto discontinued. According to the patient, she has been on Plavix for questionable history of stroke. She has a history of metastatic colon cancer with metastases to the liver and lung and she has been on chemotherapy, follows up with Dr. HUTCHISON. She had a history of type 2 diabetes mellitus and she has been on insulin, most recent hemoglobin A1c was on April, and it was 9.8 indicating uncontrolled diabetes. She has a history of hypertension which seemed to be under control with Altace, triamterene and HCTZ. In the emergency room, she was afebrile, blood pressure stable, pulse ox is normal on room air. Her routine blood work was remarkable for hemoglobin of 10.7 g/dL which is actually better than her previous readings, other routine blood work was unremarkable. Her LFT and lipase were normal. CT scan abdomen and pelvis without contrast revealed stable lung and liver metastases with moderate amount of fecal material in the colon. She is being admitted for GI bleed and intractable lower back and left hip pain. Past Medical History Past Medical History (Chronic Problems): Chronic Problems Normochromic normocytic anemia (Chronic) Colon cancer metastasized to liver (Chronic) Colon cancer metastasized to lung (Chronic) Adenocarcinoma of sigmoid colon (Chronic) HTN (hypertension) (Chronic) Diabetes mellitus, type II (Chronic) Depression with anxiety (Chronic) Allergies metoclopramide [From Reglan] Adverse Reaction (Verified 11/09/17 13:04) Other ANXIETY, RESTLESSNESS Home Medications: Ambulatory Orders Medication Instructions Recorded Ramipril [Altace] 10 mg PO DAILY 03/02/15 Insulin Aspart [Novolog Flexpen] 12 units SC PRN PRN 12/08/16 Insulin Detemir [Levemir FlexPen] 100 units SC DAILY 09/23/17 Venlafaxine XR [Effexor Xr] 37.5 mg PO DAILY 10/01/17 Clopidogrel Bisulfate [Plavix] 75 mg PO DAILY 11/09/17 Triamterene/Hydrochlorothiazid 1 tab PO DAILY 11/09/17 [Triamterene-Hctz 37.5-25 mg Tb] Surgical History: hysterectomy, - - R TKR, Hysterectomy/BLSOO. 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 Denies: Chills, Fever Eyes: Denies: Blurred vision, Double vision, Drainage, Redness HEENT: Denies: Difficulty Hearing, Ear Pain, Eye Pain, Nasal Congestion, Sore Throat Cardiovascular: Denies: Chest Pain, Chest Tightness, Edema, Heaviness, Light Headedness, Palpitations, Syncope Respiratory: Denies: Cough, Pleuritic Pain, Shortness of Breath, Sputum production, Wheezing Gastrointestinal: Reports: Hematemesis, Nausea, Melena, Vomiting. Denies: Abdominal Pain, Constipation, Diarrhea Genitourinary: Denies: Dysuria, Frequency, Hematuria Musculoskeletal: Denies: Arm Pain, Back Pain, Foot Pain Skin: Denies: Dryness, Rash Neurological: Denies: Balance problems, Double vision, Change in Speech, Slurred speech, Confusion, Headaches, Incoordination, Numbness Psychiatric: Reports: Anxiety, Depression VTE Information - Inpt Only VTE Present on Admission: No VTE Mechan Device Prophylaxis: SCD's VTE Pharm Prophylaxis ordered?: No Patient Problems: Active and Suspected Problems GI bleed (Acute) - Physical Exam General: Alert, Oriented x3, Cooperative, - - She is tearful and in moderate to severe pain. HEENT: Atraumatic, PERRLA, EOMI Oral: Moist Mucosa, No Gingival or Mucosal Lesions/ Ulcerations Neck: Supple, No JVD, Negative Carotid Bruits, Trachea Midline, Thyroid Normal Size and Texture Lungs: Clear to auscultation, No rhonchi, No wheeze, No rales, Diminished Cardiovascular: Regular rate, Regular Rhythm, Normal S1, Normal S2, PMI Normal Abdomen: Bowel Sounds Present, Soft, Non Tender, Non-Distended, No Hepato-splenomegaly Extremities: No clubbing, No cyanosis, No edema Skin: No rashes, No breakdown Lymphatic: No Cervical, Supraclavicular, or Inguinal Adenopathy Neurological: Cranial nerves II-XII grossly intact, Motor Exam 5/5 strength throughout Psych/Mental Status: Anxious, Alert and oriented to time, place, person, mood and affect Vital Signs Temp Pulse Resp BP Pulse Ox 97.4 F L 97 18 139/67 H 100 11/09/17 13:01 11/09/17 19:51 11/09/17 19:51 11/09/17 19:51 11/09/17 19:51 Oxygen Delivery Method Room Air Weight: 155 lb 13.869 oz Body Mass Index (BMI) 29.4 Finger Stick Blood Glucose 340 Microbiology Past 72 Hours 11/09/17 19:50 Stool Occult Blood (BALDEV) - Final Stool Occult Blood Positive Laboratory Tests Past 24 Hrs 11/09/17 11/09/17 11/09/17 15:16 15:16 16:30 WBC 8.2 RBC 3.15 L Hgb 10.7 L Hct 29.9 L MCV 94.9 MCH 34.0 H MCHC 35.8 RDW 12.5 RDW Differential 41.6 Plt Count 186 MPV 8.6 Immature Gran % (Auto) 0.200 Neut % (Auto) 74.2 H Lymph % (Auto) 19.6 Sanders % (Auto) 4.9 Eos % (Auto) 1.0 Baso % (Auto) 0.1 Absolute Neuts (auto) 6.1 Absolute Lymphs (auto) 1.61 Total Counted Not Reportable Sodium 136 Potassium 3.7 Chloride 103 Carbon Dioxide 23.0 Anion Gap 10 BUN 26 H Creatinine 0.92 Estim Creat Clear Calc 41.71 Est GFR (MDRD) Af Amer 77 Est GFR (MDRD) Non-Af 63 BUN/Creatinine Ratio 28.1 H Glucose 274 H Calcium 9.4 Total Bilirubin 0.40 AST 22 ALT 20 Alkaline Phosphatase 89 Total Protein 7.7 Albumin 3.0 L Globulin 4.7 H Albumin/Globulin Ratio 0.6 L Lipase 57 L Urine Color Yellow Urine Clarity Sl. Cloudy Urine pH 6.0 Ur Specific Ulysses 1.020 Urine Protein 100 H Urine Glucose (UA) 1000 H Urine Ketones 5 H Urine Occult Blood 10 H Urine Nitrite Negative Urine Bilirubin Negative Urine Urobilinogen Normal Ur Leukocyte Esterase 100 H POC Glucose 11/09/17 19:07 POC Glucose 236 H Clinical Impression(s) from Imaging Studies Abdomen/Pelvis CT 11/09/17 15:07 IMPRESSION: Stable pulmonary nodules. Stable liver metastasis. Moderate amount of fecal material is seen in the colon. Electronically Signed: Donavon Schulte MD at 16:03 EST Tel [phone], Service support , Assessment/Plan Active and Suspected Problems GI bleed (Acute) This is a 72 years old female patient presented to the medicine because of coffee-ground emesis with blood clots as well as low back and left hip pain and she is being admitted for GI bleed and intractable low back and left hip pain in context of history of sciatica and chronic low back pain. #1 GI bleed: Patient was admitted in September, for rectal bleeding, no upper EGD or colonoscopy performed and she did not require blood transfusion. Her rectal bleeding attributed to her metastatic colon cancer. Today, she came in with coffee-ground emesis with blood clots. It could be due to either upper or lower GI bleed. She is on Plavix and according to the patient, she has been on it for ??? high risk of stroke. Her platelet count is normal. Admission hemoglobin is 10.7 g/dL. Plan: Admit to PCU, cardiac monitoring, keep on clear liquids, IV fluids, pro time and INR, hold Plavix, type and crossmatch 1 unit of packed RBCs, start IV Protonix drip, IV antiemetics, GI consult, PT OT evaluation and treatment. ER physician spoke with Dr. Dale who agreed to see the patient tomorrow in consultation. #2 intractable low back/left hip pain: Patient had a history of sciatica. She denied focal deficits or numbness or tingling. Plan: IV hydromorphone as needed, OxyIR as needed, PT OT evaluation and treatment. #3 metastatic colon cancer: With metastasis to liver and lung, on chemotherapy, follows up with Dr. Hutchison. #4 chronic anemia: It is secondary to cancer and chemotherapy. Her hemoglobin since April, has been in the range of 8-11 g/dL. Admission hemoglobin is 10.7 g/dL. Stable, plan as above, type and crossmatch 1 unit of packed RBCs, transfuse if hemoglobin less than 8 g/dL. #4 type 2 diabetes mellitus: ADA diet, Accu-Cheks, insulin sliding scale, continue home doses of Levemir insulin. #5 hypertension: Blood pressure stable, continue Altace, hold triamterene and HCTZ, IV hydralazine as needed. #6 depression/anxiety: Continue Effexor. #7 DVT prophylaxis: SCDs. This note was generated with [employer] dictation software. It may contain incorrect words, spelling, and punctuation that were not noted in checking the note before signing. Code Visit Inpatient E&M: 36268 Init Hosp L3
[2017-11-09] MEDS: HYDROmorphone 1 MG/ML Syringe IV (21:12)
--- NOTE | 2017-11-09 21:24 | HP.PCM_ITS ---
Problem List (1) GI bleed Status: Acute Qualifiers: GI bleed type/associated pathology: anorectal hemorrhage Qualified Code(s) : K62.5 - Hemorrhage of anus and rectum (2) Normochromic normocytic anemia Status: Chronic (3) Colon cancer metastasized to liver Status: Chronic (4) Colon cancer metastasized to lung Status: Chronic (5) Adenocarcinoma of sigmoid colon Status: Chronic (6) HTN (hypertension) Status: Chronic Qualifiers: (7) Diabetes mellitus, type II Status: Chronic Qualifiers: (8) Depression with anxiety Status: Chronic History of Present Illness Date of Admission: 11/09/17 Chief Complaint: Coffee-ground emesis, low back pain. The patient is a 71 year old F with past medical history as mentioned above presented to the emergency room because of coffee-ground emesis. Today, she had 4 episodes of coffee-ground emesis, dark vomitus with blood clots, small to moderate amount without associated symptoms and without aggravating or relieving factors. Also, she complained of low back pain and left hip pain, sharp pain, not radiating, stay to 9 out of 10 in severity, constant, no aggravating or relieving factors and no other associated symptoms. She does have a history of left-sided sciatica and she attributed her pain to this. On September,, she was admitted for rectal bleeding which is attributed to her metastatic colon cancer. During that admission, no upper EGD or colonoscopy performed and no blood transfusion given. Couple of months ago, she was started on Xarelto for PE and she is started having GI bleed as well as epistaxis for which Xarelto discontinued. According to the patient, she has been on Plavix for questionable history of stroke. She has a history of metastatic colon cancer with metastases to the liver and lung and she has been on chemotherapy, follows up with Dr. HUTCHISON. She had a history of type 2 diabetes mellitus and she has been on insulin, most recent hemoglobin A1c was on April, and it was 9.8 indicating uncontrolled diabetes. She has a history of hypertension which seemed to be under control with Altace, triamterene and HCTZ. In the emergency room, she was afebrile, blood pressure stable, pulse ox is normal on room air. Her routine blood work was remarkable for hemoglobin of 10.7 g/dL which is actually better than her previous readings , other routine blood work was unremarkable. Her LFT and lipase were normal. CT scan abdomen and pelvis without contrast revealed stable lung and liver metastases with moderate amount of fecal material in the colon. She is being admitted for GI bleed and intractable lower back and left hip pain. Past Medical History Past Medical History (Chronic Problems): Chronic Problems Normochromic normocytic anemia (Chronic) Colon cancer metastasized to liver (Chronic) Colon cancer metastasized to lung (Chronic) Adenocarcinoma of sigmoid colon (Chronic) HTN (hypertension) (Chronic) Diabetes mellitus, type II (Chronic) Depression with anxiety (Chronic) Allergies metoclopramide [From Reglan] Adverse Reaction (Verified 11/09/17 13:04) Other ANXIETY, RESTLESSNESS Home Medications: Ambulatory Orders Medication Instructions Recorded Ramipril [Altace] 10 mg PO DAILY 03/02/15 Insulin Aspart [Novolog Flexpen] 12 units SC PRN PRN 12/08/16 Insulin Detemir [Levemir FlexPen] 100 units SC DAILY 09/23/17 Venlafaxine XR [Effexor Xr] 37.5 mg PO DAILY 10/01/17 Clopidogrel Bisulfate [Plavix] 75 mg PO DAILY 11/09/17 Triamterene/Hydrochlorothiazid 1 tab PO DAILY 11/09/17 [Triamterene-Hctz 37.5-25 mg Tb] Surgical History: hysterectomy, - - R TKR, Hysterectomy/BLSOO. 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 Denies: Chills, Fever Eyes: Denies: Blurred vision, Double vision, Drainage, Redness HEENT: Denies: Difficulty Hearing, Ear Pain, Eye Pain, Nasal Congestion, Sore Throat Cardiovascular: Denies: Chest Pain, Chest Tightness, Edema, Heaviness, Light Headedness, Palpitations, Syncope Respiratory: Denies: Cough, Pleuritic Pain, Shortness of Breath, Sputum production, Wheezing Gastrointestinal: Reports: Hematemesis, Nausea, Melena, Vomiting. Denies: Abdominal Pain, Constipation, Diarrhea Genitourinary: Denies: Dysuria, Frequency, Hematuria Musculoskeletal: Denies: Arm Pain, Back Pain, Foot Pain Skin: Denies: Dryness, Rash Neurological: Denies: Balance problems, Double vision, Change in Speech, Slurred speech, Confusion, Headaches, Incoordination, Numbness Psychiatric: Reports: Anxiety, Depression VTE Information - Inpt Only VTE Present on Admission: No VTE Mechan Device Prophylaxis: SCD's VTE Pharm Prophylaxis ordered?: No Patient Problems: Active and Suspected Problems GI bleed (Acute) - Physical Exam General: Alert, Oriented x3, Cooperative, - - She is tearful and in moderate to severe pain. HEENT: Atraumatic, PERRLA, EOMI Oral: Moist Mucosa, No Gingival or Mucosal Lesions/ Ulcerations Neck: Supple, No JVD, Negative Carotid Bruits, Trachea Midline, Thyroid Normal Size and Texture Lungs: Clear to auscultation, No rhonchi, No wheeze, No rales, Diminished Cardiovascular: Regular rate, Regular Rhythm, Normal S1, Normal S2, PMI Normal Abdomen: Bowel Sounds Present, Soft, Non Tender, Non-Distended, No Hepato- splenomegaly Extremities: No clubbing, No cyanosis, No edema Skin: No rashes, No breakdown Lymphatic: No Cervical, Supraclavicular, or Inguinal Adenopathy Neurological: Cranial nerves II-XII grossly intact, Motor Exam 5/5 strength throughout Psych/Mental Status: Anxious, Alert and oriented to time, place, person, mood and affect Vital Signs Temp Pulse Resp BP Pulse Ox 97.4 F L 97 18 139/67 H 100 11/09/17 13:01 11/09/17 19:51 11/09/17 19:51 11/09/17 19:51 11/09/17 19:51 Oxygen Delivery Method Room Air Weight: 155 lb 13.869 oz Body Mass Index (BMI) 29.4 Finger Stick Blood Glucose 340 Microbiology Past 72 Hours 11/09/17 19:50 Stool Occult Blood (BALDEV) - Final Stool Occult Blood Positive Laboratory Tests Past 24 Hrs 11/09/17 11/09/17 11/09/17 15:16 15:16 16:30 WBC 8.2 RBC 3.15 L Hgb 10.7 L Hct 29.9 L MCV 94.9 MCH 34.0 H MCHC 35.8 RDW 12.5 RDW Differential 41.6 Plt Count 186 MPV 8.6 Immature Gran % (Auto) 0.200 Neut % (Auto) 74.2 H Lymph % (Auto) 19.6 [place] % (Auto) 4.9 Eos % (Auto) 1.0 Baso % (Auto) 0.1 Absolute Neuts (auto) 6.1 Absolute Lymphs (auto) 1.61 Total Counted Not Reportable Sodium 136 Potassium 3.7 Chloride 103 Carbon Dioxide 23.0 Anion Gap 10 BUN 26 H Creatinine 0.92 Estim Creat Clear Calc 41.71 Est GFR (MDRD) Af Amer 77 Est GFR (MDRD) Non-Af 63 BUN/Creatinine Ratio 28.1 H Glucose 274 H Calcium 9.4 Total Bilirubin 0.40 AST 22 ALT 20 Alkaline Phosphatase 89 Total Protein 7.7 Albumin 3.0 L Globulin 4.7 H Albumin/Globulin Ratio 0.6 L Lipase 57 L Urine Color Yellow Urine Clarity Sl. Cloudy Urine pH 6.0 Ur Specific [place] 1.020 Urine Protein 100 H Urine Glucose (UA) 1000 H Urine Ketones 5 H Urine Occult Blood 10 H Urine Nitrite Negative Urine Bilirubin Negative Urine Urobilinogen Normal Ur Leukocyte Esterase 100 H POC Glucose 11/09/17 19:07 POC Glucose 236 H Clinical Impression(s) from Imaging Studies Abdomen/Pelvis CT 11/09/17 15:07 IMPRESSION: Stable pulmonary nodules. Stable liver metastasis. Moderate amount of fecal material is seen in the colon. Electronically Signed: Donavon Schulte MD at 16:03 EST Tel [phone], Service support , Assessment/Plan Active and Suspected Problems GI bleed (Acute) This is a 72 years old female patient presented to the medicine because of coffee-ground emesis with blood clots as well as low back and left hip pain and she is being admitted for GI bleed and intractable low back and left hip pain in context of history of sciatica and chronic low back pain. #1 GI bleed: Patient was admitted in September, for rectal bleeding, no upper EGD or colonoscopy performed and she did not require blood transfusion. Her rectal bleeding attributed to her metastatic colon cancer. Today, she came in with coffee-ground emesis with blood clots. It could be due to either upper or lower GI bleed. She is on Plavix and according to the patient, she has been on it for ??? high risk of stroke. Her platelet count is normal. Admission hemoglobin is 10.7 g/dL. Plan: Admit to PCU, cardiac monitoring, keep on clear liquids, IV fluids, pro time and INR, hold Plavix, type and crossmatch 1 unit of packed RBCs, start IV Protonix drip, IV antiemetics, GI consult, PT OT evaluation and treatment. ER physician spoke with Dr. Dale who agreed to see the patient tomorrow in consultation. #2 intractable low back/left hip pain: Patient had a history of sciatica. She denied focal deficits or numbness or tingling. Plan: IV hydromorphone as needed , OxyIR as needed, PT OT evaluation and treatment. #3 metastatic colon cancer: With metastasis to liver and lung, on chemotherapy, follows up with Dr. Hutchison. #4 chronic anemia: It is secondary to cancer and chemotherapy. Her hemoglobin since April, has been in the range of 8-11 g/dL. Admission hemoglobin is 10.7 g/dL. Stable, plan as above, type and crossmatch 1 unit of packed RBCs, transfuse if hemoglobin less than 8 g/dL. #4 type 2 diabetes mellitus: ADA diet, Accu-Cheks, insulin sliding scale, continue home doses of Levemir insulin. #5 hypertension: Blood pressure stable, continue Altace, hold triamterene and HCTZ, IV hydralazine as needed. #6 depression/anxiety: Continue Effexor. #7 DVT prophylaxis: SCDs. This note was generated with [employer] dictation software. It may contain incorrect words, spelling, and punctuation that were not noted in checking the note before signing. Code Visit Inpatient E&M: 32316 Init Hosp L3
[2017-11-09] MEDS: 0.9% Normal Saline 1,000 ML 100 ML IV (22:32)
[2017-11-09 22:46] LABS: Bedside Glucose 299 mg/dL (70-110)
[2017-11-09] MEDS: 0.9% NaCl VAD Flush 10 ML IV ×2 (22:50→22:51)
[2017-11-09 22:55] LABS: Prothrombin Time (Protime)PT. 13.6 SECONDS (11.7-14.9)
[2017-11-10] VITALS (12 sets, daily range): BP systolic 119–183; BP diastolic 56–95; PULSE 67–109; RESP 16–18; TEMP 36.6–37; O2SAT 95–98
[2017-11-10] MEDS: 0.9% NaCl VAD Flush 10 ML IV ×3 (03:45→21:42)
[2017-11-10] MEDS: HYDROmorphone 1 MG/ML Syringe IV ×3 (03:46→21:42)
[2017-11-10] MEDS: Ondansetron 4 MG/2 ML Vial IV (03:47)
[2017-11-10 06:39] LABS: Absolute Lymphocyte Count 0.93 X10^3/ul (0.83-4.51); Absolute Neutrophil Count 5.3 X10^3/uL (2.0-7.7); Basophil# 0.01 X10^3/uL; Basophil% 0.1 % (0-1); Eosinophil# 0.05 X10^3/uL; Eosinophils% 0.7 % (0-5); Hematocrit 30.5 % (37-47); Hemoglobin 10.4 g/dl (12.0-15.0); Lymphocyte # 0.93 X10^3/ul (4.0); Lymphocyte % 13.8 % (19-41); Mean Corp Hgb Conc 34.1 g/gl (32-36); Mean Corpuscular Hgb 33.1 pg (27.0-32.0); Mean Corpuscular Volume 97.1 fL (81-99); Mean Platelet Vol. 8.1 fl (6.2-12.0); Monocyte# 0.39 X10^3/uL; Monocyte% 5.8 % (0-10); Neutrophil # 5.34 X10^3/uL (2.7-7.7); Neutrophil % 79.3 % (47-70); Platelet Count 118 K/mm3 (150-450); RBC Distribution Width CV 13.3 % (11.6-14.6); RBC Distribution Width SD 46.5 fl (35.1-43.9); Red Blood Count 3.14 M/mm3 (4.2-5.4); White Blood Count 6.7 K/mm3 (4.4-11.0)
[2017-11-10 06:41] LABS: POSITIVE COUNT NO; POSITIVE DIFFERENTIAL NO; POSITIVE MORPHOLOGY NO
[2017-11-10 06:50] LABS: Bedside Glucose 332 mg/dL (70-110)
[2017-11-10 07:04] LABS: Anion Gap 6 (5-15); BUN 20 mg/dL (7-18); BUN/Creat Ratio 23.2 RATIO (10-20); Calcium,Total 8.5 mg/dL (8.5-10.1); Chloride 107 mmol/L (98-107); Creatinine, Serum 0.86 mg/dL (0.55-1.02); EST Glomerular Filtration Rate 69 mL/min (>60); Est Glom Filt Rate - Afr Amer 83 mL/min (>60); Estimated Creatinine Clearance 44.62 ml/min; Glucose 331 mg/dL (74-106); Potassium 4.9 mmol/L (3.5-5.1); Sodium Level 139 mmol/L (136-145)
[2017-11-10] MEDS: 0.9% Normal Saline 1,000 ML 100 ML IV ×2 (07:49→17:04)
[2017-11-10] MEDS: Ramipril 10 MG Capsule PO (09:13)
[2017-11-10] MEDS: Venlafaxine XR 37.5 MG Capsule PO (09:13)
[2017-11-10 11:55] LABS: Bedside Glucose 251 mg/dL (70-110)
--- NOTE | 2017-11-10 13:45 | CON.PCM_ITS ---
- Consult Date of Consult: 11/10/17 - Reason for Consult Reason for consultation: Patient with hematemesis and metastatic colon cancer The patient is a [71] year old [female] who I have been asked to consult. The patient reported she felt nauseated and vomited some coffee grounds and bloody material yesterday. Has a history of metastatic colon cancer with a sigmoid colon lesion past disease to the lung and liver. She reports some abdominal pain along the left side. History of peptic ulcer disease. She denies any chest pains or shortness of breath patient she has not had any further hematemesis and IV PPI. And Plavix as a previous history of a stroke is long- standing diabetes and hypertension. View of systems noted with her today she offers no other complaints. Allergies: Allergies metoclopramide [From Reglan] Adverse Reaction (Verified 11/09/17 21:56) Other Medications: Prescriptions This Visit Medication Instructions Recorded Clopidogrel Bisulfate [Plavix] 75 mg PO DAILY 11/09/17 Triamterene/Hydrochlorothiazid 1 tab PO DAILY 11/09/17 [Triamterene-Hctz 37.5-25 mg Tb] Medications Added to Medication List This Visit Category Date Time Status Insulin Detemir [Levemir (BKC)] Med 11/10/17 07:00 Active 100 units SC DAILY@0700 ProMETHAzine [Phenergan (Ll)] Med 11/10/17 05:10 Active 6.25 mg IV Q6H PRN PRN Ramipril [Altace] Med 11/10/17 10:00 Active 10 mg PO DAILY Venlafaxine XR [Effexor Xr] Med 11/10/17 10:00 Active 37.5 mg PO DAILY PMH: Diabetes hypertension colon cancer PSH: No recent surgeries Social: Does not smoke ROS: Noted in the HPI Vitals: Vital Signs Height 5 ft 1 in Weight: 70.1 kg Weight in Pounds 154.5 lbs Pulse Ox 97 Temperature 98.6 F Pulse Rate 91 Respiratory Rate 16 Blood Pressure 134/56 Blood Pressure Position Semi-Fowlers HEENT: Anicteric sclera conjunctiva are pale NECK: Supple HEART: S1-S2 LUNGS: Clear bilaterally ABDOMEN: Good bowel sounds EXTER: Nontender no edema Neuro: Alert and oriented Impression: 71-year-old female presented with some coffee ground emesis she is hemodynamically stable hemoglobin count is stable today tolerating oral liquids she is on IV PPI recommend stopping the Plavix and convert the patient to a baby aspirin as this is a second time with a GI bleed in the last 2 months patient should receive a PPI daily on discharge no need for endoscopy at this time. Patient with advanced metastatic colon cancer.
[2017-11-10 16:06] LABS: Bedside Glucose 135 mg/dL (70-110)
--- NOTE | 2017-11-10 16:13 | PCM.PN.HOSP ---
Patient Problems: Active and Suspected Problems GI bleed (Acute) Subjective: CC: Coffee-ground emesis 71-year-old female with metastatic colon cancer who presented with coffee-ground emesis , the patient takes Plavix for unclear indication. She currently denies any hematemesis, abdominal pain melena stools or hematochezia. Vitals/I&O's: Vital Signs Temp Pulse Resp BP Pulse Ox 97.8 F 69 18 128/62 H 97 11/10/17 15:09 11/10/17 15:29 11/10/17 15:09 11/10/17 15:09 11/10/17 15:09 Oxygen Delivery Method Room Air Weight: 70.1 kg Body Mass Index (BMI) 29.2 Intake and Output for Last 24 Hours 11/08/17 11/09/17 11/10/17 23:59 23:59 23:59 Intake Total 1601 / 1601 Balance 1601 / 1601 General: Alert, Oriented x3 HEENT: Atraumatic Oral: Moist Mucosa Neck: Supple, No JVD Lungs: Clear to auscultation Abdomen: Bowel Sounds Present, Soft, Non-Distended Extremities: No edema Neurological: Cranial nerves II-XII grossly intact, Neuro grossly intact, Motor Exam 5/5 strength throughout Laboratory Results 11/09/17 22:10: PT 13.6, INR 1.0 11/09/17 22:39: POC Glucose 299 H 11/10/17 06:25: WBC 6.7, RBC 3.14 L, Hgb 10.4 L, Hct 30.5 L, MCV 97.1, MCH 33.1 H, MCHC 34.1, RDW 13.3, RDW Differential 46.5 H, Plt Count 118 L, MPV 8.1, Immature Gran % (Auto) 0.300, Neut % (Auto) 79.3 H, Lymph % (Auto) 13.8 L, [place] % (Auto) 5.8, Eos % (Auto) 0.7, Baso % (Auto) 0.1, Absolute Neuts (auto) 5.3, Absolute Lymphs (auto) 0.93, Total Counted Not Reportable 11/10/17 06:25: Sodium 139, Potassium 4.9, Chloride 107, Carbon Dioxide 26.0, Anion Gap 6, BUN 20 H, Creatinine 0.86, Estim Creat Clear Calc 44.62, Est GFR (MDRD) Af Amer 83, Est GFR (MDRD) Non-Af 69, BUN/Creatinine Ratio 23.2 H, Glucose 331 H, Calcium 8.5 11/10/17 06:45: POC Glucose 332 H 11/10/17 11:37: POC Glucose 251 H 11/10/17 15:59: POC Glucose 135 H Current Medications Dextrose (D50w Syringe) 0 gm IV X1 PRN; Protocol PRN Reason: Hypoglycemia Glucagon () 1 mg IM .X1 PRN PRN Reason: Hypoglycemia Hydralazine HCl (Apresoline) 10 mg IV Q8H PRN PRN PRN Reason: for SBP>160 Last Admin: 11/10/17 03:46 Dose: 10 mg Hydromorphone HCl (Dilaudid) 1 mg IV Q4H PRN PRN PRN Reason: SEVERE PAIN (6-10/10) Last Admin: 11/10/17 14:06 Dose: 1 mg Sodium Chloride () 1,000 mls @ 100 mls/hr IV .Q10H [facility] Last Admin: 11/10/17 07:49 Dose: 100 mls/hr Pantoprazole Sodium 80 mg/ (Sodium Chloride) 100 mls @ 10 mls/hr CONT INF Q10H [facility] Last Admin: 11/10/17 07:52 Dose: 10 mls/hr Insulin Aspart (Novolog Flexpen (Bkc)) 0 units SC ACHS [facility] PRN Reason: Protocol Last Admin: 11/10/17 11:38 Dose: 2 units Insulin Detemir (Levemir (Bkc)) 100 units SC DAILY@0700 [facility] Last Admin: 11/10/17 07:49 Dose: 100 u Ondansetron HCl (Zofran) 4 mg IV Q6H PRN PRN PRN Reason: NAUSEA/VOMITING Last Admin: 11/10/17 03:47 Dose: 4 mg Oxycodone HCl (Oxyir) 5 mg PO Q6H PRN PRN PRN Reason: SEVERE PAIN (6-10/10) Promethazine HCl (Phenergan (Ll)) 6.25 mg IV Q6H PRN PRN PRN Reason: NAUSEA/VOMITING Last Admin: 11/10/17 05:38 Dose: 6.25 mg Ramipril (Altace) 10 mg PO DAILY [facility] Last Admin: 11/10/17 09:13 Dose: 10 mg Sodium Chloride () 10 ml IV UD PRN PRN Reason: VAD FLUSH Last Admin: 11/10/17 05:38 Dose: 10 ml Venlafaxine HCl (Effexor Xr) 37.5 mg PO DAILY [facility] Last Admin: 11/10/17 09:13 Dose: 37.5 mg Assessment/Plan Active and Suspected Problems GI bleed (Acute) 1 GI bleed; will continue on IV PPI, gastroenterology does not recommend any further procedures at this time. We will discontinue her Plavix. 2 intractable low back/left hip pain, she has history of sciatica; would optimize pain control 3 Metastatic colon cancer, she follows up with Dr. Peterson. 4 chronic anemia; monitor hemoglobin and transfuse as needed. 5. DM type 2 diabetes mellitus; she is on Levemir . 6. hypertension; is controlled. 7. depression/anxiety; she is on Effexor. 8. DVT prophylaxis: We will discontinue heparin, SCDs for now. . Code Visit Inpatient E&M: 84440 Subs Hosp L2
--- NOTE | 2017-11-10 16:14 | CASEMGMT ---
Face to Face with patient for initial transition planning/care coordination assessment. RN ANDER introduced self and role at [facility], pt voices understanding and consents to assessment at this time. Pt lying on side in bed and states in pain with nausea. This RN ANDER offered to return at a better time but pt states to stay at this time. Pt A/O x4 at this time and answers questions appropriately. Care providers, pharmacy, and demographics verified. See attached link. Pt voices no further concerns/needs at this time. Advised pt to ask for CM if any further questions/concerns/needs arise, voices understanding. PLAN: [place] [facility] [place]
--- NOTE | 2017-11-10 16:17 | PN_ITS ---
Patient Problems: Active and Suspected Problems GI bleed (Acute) Subjective: CC: Coffee-ground emesis 71-year-old female with metastatic colon cancer who presented with coffee- ground emesis , the patient takes Plavix for unclear indication. She currently denies any hematemesis, abdominal pain melena stools or hematochezia. Vitals/I&O's: Vital Signs Temp Pulse Resp BP Pulse Ox 97.8 F 69 18 128/62 H 97 11/10/17 15:09 11/10/17 15:29 11/10/17 15:09 11/10/17 15:09 11/10/17 15:09 Oxygen Delivery Method Room Air Weight: 70.1 kg Body Mass Index (BMI) 29.2 Intake and Output for Last 24 Hours 11/08/17 11/09/17 11/10/17 23:59 23:59 23:59 Intake Total 1601 / 1601 Balance 1601 / 1601 General: Alert, Oriented x3 HEENT: Atraumatic Oral: Moist Mucosa Neck: Supple, No JVD Lungs: Clear to auscultation Abdomen: Bowel Sounds Present, Soft, Non-Distended Extremities: No edema Neurological: Cranial nerves II-XII grossly intact, Neuro grossly intact, Motor Exam 5/5 strength throughout Laboratory Results 11/09/17 22:10: PT 13.6, INR 1.0 11/09/17 22:39: POC Glucose 299 H 11/10/17 06:25: WBC 6.7, RBC 3.14 L, Hgb 10.4 L, Hct 30.5 L, MCV 97.1, MCH 33.1 H, MCHC 34.1, RDW 13.3, RDW Differential 46.5 H, Plt Count 118 L, MPV 8.1, Immature Gran % (Auto) 0.300, Neut % (Auto) 79.3 H, Lymph % (Auto) 13.8 L, [place] % (Auto) 5.8, Eos % (Auto) 0.7, Baso % (Auto) 0.1, Absolute Neuts (auto) 5.3, Absolute Lymphs (auto) 0.93, Total Counted Not Reportable 11/10/17 06:25: Sodium 139, Potassium 4.9, Chloride 107, Carbon Dioxide 26.0, Anion Gap 6, BUN 20 H, Creatinine 0.86, Estim Creat Clear Calc 44.62, Est GFR ( MDRD) Af Amer 83, Est GFR (MDRD) Non-Af 69, BUN/Creatinine Ratio 23.2 H, Glucose 331 H, Calcium 8.5 11/10/17 06:45: POC Glucose 332 H 11/10/17 11:37: POC Glucose 251 H 11/10/17 15:59: POC Glucose 135 H Current Medications Dextrose (D50w Syringe) 0 gm IV X1 PRN; Protocol PRN Reason: Hypoglycemia Glucagon () 1 mg IM .X1 PRN PRN Reason: Hypoglycemia Hydralazine HCl (Apresoline) 10 mg IV Q8H PRN PRN PRN Reason: for SBP>160 Last Admin: 11/10/17 03:46 Dose: 10 mg Hydromorphone HCl (Dilaudid) 1 mg IV Q4H PRN PRN PRN Reason: SEVERE PAIN (6-10/10) Last Admin: 11/10/17 14:06 Dose: 1 mg Sodium Chloride () 1,000 mls @ 100 mls/hr IV .Q10H [facility] Last Admin: 11/10/17 07:49 Dose: 100 mls/hr Pantoprazole Sodium 80 mg/ (Sodium Chloride) 100 mls @ 10 mls/hr CONT INF Q10H [facility] Last Admin: 11/10/17 07:52 Dose: 10 mls/hr Insulin Aspart (Novolog Flexpen (Bkc)) 0 units SC ACHS [facility] PRN Reason: Protocol Last Admin: 11/10/17 11:38 Dose: 2 units Insulin Detemir (Levemir (Bkc)) 100 units SC DAILY@0700 [facility] Last Admin: 11/10/17 07:49 Dose: 100 u Ondansetron HCl (Zofran) 4 mg IV Q6H PRN PRN PRN Reason: NAUSEA/VOMITING Last Admin: 11/10/17 03:47 Dose: 4 mg Oxycodone HCl (Oxyir) 5 mg PO Q6H PRN PRN PRN Reason: SEVERE PAIN (6-10/10) Promethazine HCl (Phenergan (Ll)) 6.25 mg IV Q6H PRN PRN PRN Reason: NAUSEA/VOMITING Last Admin: 11/10/17 05:38 Dose: 6.25 mg Ramipril (Altace) 10 mg PO DAILY [facility] Last Admin: 11/10/17 09:13 Dose: 10 mg Sodium Chloride () 10 ml IV UD PRN PRN Reason: VAD FLUSH Last Admin: 11/10/17 05:38 Dose: 10 ml Venlafaxine HCl (Effexor Xr) 37.5 mg PO DAILY [facility] Last Admin: 11/10/17 09:13 Dose: 37.5 mg Assessment/Plan Active and Suspected Problems GI bleed (Acute) 1 GI bleed; will continue on IV PPI, gastroenterology does not recommend any further procedures at this time. We will discontinue her Plavix. 2 intractable low back/left hip pain, she has history of sciatica; would optimize pain control 3 Metastatic colon cancer, she follows up with Dr. Peterson. 4 chronic anemia; monitor hemoglobin and transfuse as needed. 5. DM type 2 diabetes mellitus; she is on Levemir . 6. hypertension; is controlled. 7. depression/anxiety; she is on Effexor. 8. DVT prophylaxis: We will discontinue heparin, SCDs for now. . Code Visit Inpatient E&M: 29385 Subs Hosp L2
[2017-11-10 22:36] LABS: Bedside Glucose 113 mg/dL (70-110)
[2017-11-11] MEDS: 0.9% Normal Saline 1,000 ML 100 ML IV (03:23)
[2017-11-11 03:32] VITALS: BP 126/60; PULSE 80; RESP 16; TEMP 36.9; O2SAT 95
[2017-11-11] MEDS: HYDROmorphone 1 MG/ML Syringe IV (06:29)
[2017-11-11] MEDS: 0.9% NaCl VAD Flush 10 ML IV (06:30)
[2017-11-11 06:56] LABS: Bedside Glucose 98 mg/dL (70-110)
[2017-11-11 09:32] VITALS: BP 143/66; PULSE 69; RESP 16; TEMP 36.7; O2SAT 96
[2017-11-11] MEDS: Ramipril 10 MG Capsule PO (09:47)
[2017-11-11] MEDS: Venlafaxine XR 37.5 MG Capsule PO (09:47)
--- NOTE | 2017-11-11 10:22 | NURSING ---
ATTEMPT TO DRAW LABS AM FROM PORT (+) BLOOD RETURN, BUT NOT ENOUGH FOR LABS. DISCUSSED WITH IT QUALITY ANALYST, PT PRESENTLY ON PROTONIX GTT AND A GI BLEED. NOTE LEFT FOR IVT TO MONITOR LINE, AND DECLOT PRIOR TO D/C IF POSSIBLE.
--- NOTE | 2017-11-11 11:04 | PCM.DC.SUM ---
Discharge Date and Diagnosis Date of Admission: 11/09/17 Date of Discharge: 11/11/17 - Primary Discharge Diagnosis Active and Suspected Problems GI bleed (Acute) - Secondary Discharge Diagnosis Chronic Problems Normochromic normocytic anemia (Chronic) Colon cancer metastasized to liver (Chronic) Colon cancer metastasized to lung (Chronic) Adenocarcinoma of sigmoid colon (Chronic) HTN (hypertension) (Chronic) Diabetes mellitus, type II (Chronic) Depression with anxiety (Chronic) Hospital Course and Treatment Operations: None Summary of Care Provided: This is a 71-year-old female with metastatic colon cancer who presented with coffee-ground emesis , the patient takes Plavix for unclear indication. she also takes an NSAID for pain. These Medications were discontinued. Place on IV PPI and Dr. Dale of gastroenterology was consulted he recommended no further testing at this time he felt the bleeding was due to the Plavix was discontinued. His hemoglobin remains stable and she was subsequently discharged home in a stable condition. 1 GI bleed; , gastroenterology did not recommend any further procedures at this time. Plavix dn NSAID stopped, she was discharged on Protonix p.o. 2 intractable low back/left hip pain, she has history of sciatica; would optimize pain control, was given a prescription for oxycodone as needed 3 Metastatic colon cancer, she will follow up with Dr. Peterson. 4 chronic anemia; hemoglobin is stable and she does not require any blood transfusion.. 5. DM type 2 diabetes mellitus; she is on Levemir . 6. hypertension; is controlled. 7. depression/anxiety; she is on Effexor. Exam at the time of discharge; vital signs were stable. he was alert and oriented to time place and person. he did not appear to be any form of distress. S1 and S2 heard no murmur or gallop Lung exam was clear to auscultation with no adventitious sounds. Abdomen was soft nontender with normal bowel sounds. extremity exam did not reveal any edema, palpable pulses bilaterally. Neurologic exam was grossly intact. Discharge Diet: No Restrictions Home Medications: Medications to take at Discharge Insulin Aspart [Novolog Flexpen] 12 units SC PRN PRN 12/08/16 Insulin Detemir [Levemir FlexPen] 100 units SC DAILY 09/23/17 Venlafaxine XR [Effexor Xr] 37.5 mg PO DAILY 10/01/17 Triamterene/Hydrochlorothiazid [Triamterene-Hctz 37.5-25 mg Tb] 1 tab PO DAILY 11/09/17 Oxycodone [Oxyir] 5 mg PO Q6H PRN PRN 7 Days #20 tab 11/11/17 Pantoprazole Sodium [Protonix] 40 mg PO DAILY 30 Days #30 tab 11/11/17 Following Prescrptions Were Given to Patient: Oxycodone [Oxyir] 5 mg PO Q6H PRN PRN 7 Days #20 tab PRN Reason: Severe Pain (-06/14) Pantoprazole Sodium [Protonix] 40 mg PO DAILY 30 Days #30 tab Primary Care Physician: Annetta Carey DO [Primary Care Provider] - Within 1 Week Disposition: Home Patient Condition:: Good Meaningful Use Info Meaningful Use Diagnoses (Choose all that apply): None applicable Code Visit Inpatient E&M: 78733 Disch Hosp
--- NOTE | 2017-11-11 11:04 | PCM.DC ---
- Discharge Diagnoses Current Active Problems: Current Active and Chronic Problems GI bleed (Acute) You will use the following diet at home:: Regular Discharge Activity: Return to Normal Activity Allergies/Adverse Reactions: Allergies metoclopramide [From Reglan] Adverse Reaction (Verified 11/09/17 21:56) Other ANXIETY, RESTLESSNESS Medications to take at Discharge Insulin Aspart [Novolog Flexpen] 12 units SC PRN PRN 12/08/16 Insulin Detemir [Levemir FlexPen] 100 units SC DAILY 09/23/17 Venlafaxine XR [Effexor Xr] 37.5 mg PO DAILY 10/01/17 Triamterene/Hydrochlorothiazid [Triamterene-Hctz 37.5-25 mg Tb] 1 tab PO DAILY 11/09/17 Oxycodone [Oxyir] 5 mg PO Q6H PRN PRN 7 Days #20 tablet 11/11/17 Pantoprazole Sodium [Protonix] 40 mg PO DAILY 30 Days #30 tab 11/11/17 The following prescriptions were given: Oxycodone [Oxyir] 5 mg PO Q6H PRN PRN 7 Days #20 tablet PRN Reason: Severe Pain (6-10/10) Pantoprazole Sodium [Protonix] 40 mg PO DAILY 30 Days #30 tab Primary Care Physician: Annetta Carey DO [Primary Care Provider] - Within 1 Week
[2017-11-11 11:28] LABS: Hematocrit 28.6 % (37-47); Hemoglobin 9.8 g/dl (12.0-15.0); Mean Corp Hgb Conc 34.3 g/gl (32-36); Mean Corpuscular Hgb 33.6 pg (27.0-32.0); Mean Corpuscular Volume 97.9 fL (81-99); Platelet Count 112 K/mm3 (150-450); RBC Distribution Width CV 13.4 % (11.6-14.6); RBC Distribution Width SD 46.7 fl (35.1-43.9); Red Blood Count 2.92 M/mm3 (4.2-5.4); White Blood Count 6.6 K/mm3 (4.4-11.0)
[2017-11-11 11:30] LABS: Scan Indicated on CBC? Y/N NO
--- NOTE | 2017-11-11 12:02 | CASEMGMT ---
Social Work Received referral from RN ANDER to discuss palliative care with pt. SW met with pt in room and introduced self and role of SW. Pt plans to return home and discharge has been set for today. Pt presenting with diagnosis of cancer with metastases and pt openly willing to discuss her feelings surrounding diagnosis. SW encouraged expression of feelings and provided validation and emotional support. Pt does have a local daughter who is very supportive and a son who lives out of state but is also supportive. SW explained Palliative care program to patient and provided written information. Pt also considering changing oncologists to someone local. SW provided the names of oncologists in [place]. Also provided information on [facility] transportation. Pt dgt to transport home. No further social work needs. TA Padilla
[2017-11-11] MEDS: Alteplase 2 MG/2 ML Vial IV (12:25)
[2017-11-11 12:35] LABS: Bedside Glucose 133 mg/dL (70-110)
== END 2017-11-11 14:50 | disposition home or self-care (01) | DRG 378 ==
LOC: ED 21:07 → PCU 21:14
PROVIDERS: Admitting Provider Hospitalist; Emergency Provider Emergency Medicine; Family Provider Internal Medicine; PCP Internal Medicine; Visit Provider Internal Medicine
DX: K92.0 Hematemesis (principal); C78.00 Secondary malignant neoplasm of unspecified lung; C78.7 Secondary malignant neoplasm of liver and intrahepatic bile duct; C18.7 Malignant neoplasm of sigmoid colon; E11.9 Type 2 diabetes mellitus without complications; D64.9 Anemia, unspecified; T45.525A Adverse effect of antithrombotic drugs, initial encounter; Z79.4 Long term (current) use of insulin; I10 Essential (primary) hypertension; F41.8 Other specified anxiety disorders; M54.42 Lumbago with sciatica, left side; Z79.899 Other long term (current) drug therapy
CPT/HCPCS: 36415; 74176; 80048; 80053; 81002; 82274; 82962; 83690; 85025; 85027; 85610; 86850; 86900; 86920; 86922; 97162; 99281; J2997; J7030; A4216; J2405; J3490

== ENCOUNTER 2017-11-16 10:00 | Outpatient (RCR) | payer MEDICARE, SELFPAY ==
--- NOTE | 2017-11-17 07:51 | HP.PTEVAL_ITS ---
Patient's Visit Information EMELYN HAQUE is a 71 year old F referred to Physical Therapy by Annetta RYAN with a diagnosis of Sciatica. Date of Evaluation: 11/16/17 Physical Therapist: Nathan Holman - Visit Plan Frequency: 2x /Week Duration: 4 Weeks Plan: Recommending HH PT at this time to increase strength allowing for increased ease for community mobility. If this is not warranted, start with flexion based exercises, slight lumbar distraction, progressing to TA activation in neutral spine. Progress gait and LE strengthening as tolerated. May use ice/heat for modalities, no IFC or US. - Subjective Subjective: Pt. is here today for her initial evaluation with diagnosis of sciatica radiating down her L LE. Pt. is known to this PT as she has been seen for this prior. Pt. has diagnosed with stage IV metastatic colon cancer ~10 months ago which metastisized to her lung and liver. Pt. has been having treatments including chemotherapy on and off since. Pt. reports recently going on trip to visit grandchildren and this is when her back pain started to progress. Pt. reports limited ability to leave her condo since secondary to pain. She was also recently hospitalized secondary to bleeding from several orfices after starting Xeralto. Pt. has now stopped this medications, but is still having some issues. Pt. reports increased L sided lumbar and LE pain with walking, prolonged sitting, transfers, lifting, bending and all ADLs. Decreased pain: lying on L side. Pt. reports minimal effect with ice and heat. Pt. denies changes in B/B, and no saddle region pain. Pt. reports BLE weakness, but no change since back pain has started. Pt. is able to sleep for periods at night, back pain is not waking her up at night. Pt. is hopeful to increase mobility, decrease pain allowing her to get back out into community. Pt. reports having high levels of difficulty getting out house currently and is only leaving for physician appointments. Pt's daughter is helpful and has been taking her to Home for her CA treatments and getting her groceries. - Pain L side of lumbar spine Pain Intensity (Out of 10): 5 Pain Intensity Range: 4, 8 LLE Pain Intensity (Out of 10): 4 Pain Intensity Range: 3, 8 - Objective POSTURE: Pt. has general flexed posture. Pt. has FH, uses FWW to stabilize in stance. Pt. has decreased lumbar lordosis and slouched posture in sitting. PALPATION: Pt. has increased pain with palpation to L side of lumabr erector spinea, L SI region and L piriformis. No pain noted on R side of lumbar spine. Pt. does have pain at L medial and lateral knee (most likely due to OA). NEUROLOGICAL: Pt. reports normal sensation to light and sharp touch throughout bilateral LEs. Pt. has 2+ achilles and patellar DTR bilaterally. PT. is able to rise on heels and toes without visible myotomal weakness, but does require FWW for balance aide. ROM: LUMBAR SPINE: flexion- min loss NE, ext mod loss increase NW, SB R min loss increase NW, SB L mod loss increase NW, rotation mod loss bilat increase NW. Pt. has normal hip ROM bilaterally without increase in symptoms. MMT: RLE- ankle 5-/5 througout; knee- ext 4+/5, flexion 4/5; hip- flexion 4/5, abd 4-/5, ext 4-/5. LLE- ankle 5-/5 throughout; knee- ext 4/5, flexion 4/5; hip- flexion 4-/5 increase NW, abd 4/5 NE, ext 4/5 increase NW. Core strength- poor. GAIT: Pt. ambulates with FWW with flexed posture, increased pain with attempts to increase posture. Pt. has decreased step length , and fatigues rapidly. Pt. is able to ambulate with SUP A without LOB. Pt. was able to ambulate 55' with increased pain and EMILY this date. STAIRS: Pt. was able to negotiate 2 steps with CGA with heavy use of BHR without LOB, but had increased pain with trials. - Special Tests L/S Slump test left side: Negative L/S Slump test right side: Negative L/S Left Straight Leg Raise: Positive L/S Right Straight Leg Raise: Negative Lumbar Standing: Flexion - Mechanical Response: No effect Lumbar Standing: Flexion - Symptoms During Testing: No effect Lumbar Standing: Flexion - Symptoms After Testing: No effect Lumbar Standing: Extension - Mechanical Response: No effect Lumbar Standing: Extension - Symptoms During Testing: Increases Lumbar Standing: Extension - Symptoms After Testing: No worse Lumbar Standing: Right Side Glides - Mechanical Response: No effect Lumbar Standing: Right Side [place] - Symptoms During Testing: Increases Lumbar Standing: Right Side [place] - Symptoms After Testing: No worse Lumbar Standing: Left Side [place] - Mechanical Response: No effect Lumbar Standing: Left Side [place] - Symptoms During Testing: Increases Lumbar Standing: Left Side [place] - Symptoms After Testing: No worse Lumbar Lying: Flexion - Mechanical Response: No effect Lumbar Lying: Flexion - Symptoms During Testing: Decreases Lumbar Lying: Flexion - Symptoms After Testing: Better Lumbar Lying: Extension - Mechanical Response: No effect Lumbar Lying: Extension - Symptoms During Testing: Increases Lumbar Lying: Extension - Symptoms After Testing: Worse Lumbar Static: Slouched Sit - Mechanical Response: No effect Lumbar Static: Slouched Sit - Symptoms During Testing: No effect Lumbar Static: Slouched Sit - Symptoms After Testing: No effect Lumbar Static: Sitting Erect - Mechanical Response: No effect Lumbar Static: Sitting Erect - Symptoms During Testing: No effect Lumbar Static: Sitting Erect - Symptoms After Testing: No effect Comments:: Pt. unable to get in this positioning secondary to increased pain - Goals Goal 1:: Pt. to be I with HEP. Goal Time Frame: 4-6 Weeks Goal 2:: Pt. to have increased lumbar ROM by 25% in all directions without increase in symptoms. Goal Time Frame: 4-6 Weeks Goal 3:: Pt. to have increased BLE and core strength by 1/2 grade of all effected musculature to reduce stress applied to lumbar spine with all mobility. Goal Time Frame: 4-6 Weeks Goal 4:: Pt. to ambulate 300+ ft. with FWW DANIEL with 0-2/10 pain allowing increased independence with in home and community. Goal Time Frame: 4-6 Weeks Goal 5:: Pt. to report sleeping throughout the night with 0-2/10 pain in L side of lumbar spine and LLE allowing for increased quality of life. Goal Time Frame: 4-6 Weeks - Rehabilitation Potential Physical Therapy Diagnosis: Pt. has signs and symptoms consistent with sciatica radiating down her LLE. Pt. appears to have a directional preference for flexion as her symptoms reduced in this positioning. Pt. had increased symptoms with all extension postioning. She did have improvement with straight leg distraction as well. My concern for her is her ability to get around and being immunodepressed with her cancer treatments. She may benefit from home health PT until she regains more strength then progress back to outpatient PT. I am will to treat her, but think PT might be the best current option. Rehabilitation Potential: Fair - Anticipated Interventions Patient/Client Instruction: Educate patient on: Condition, Plan of Care, Risk Factors, Benefits of Fitness Program For the Purpose of:: To reduce risk of recurrence, To improve safety, To improve health and function, To foster healthy habits, To improve decision making, To facilitate caregiver knowledge, To improve self management, To prevent re-injury, To improve ability to perform tasks related to life management, To improve tolerance to ADL's Therapeutic Exercise to Include: Strength training, Power training, Endurance training, Body mechanics, Postural training, Flexibilty training, Gait and locomotor training, Passive ROM, Active ROM, Dynamic Lumbar Stabilization, Darin Exercises For the Purpose of:: To decrease pain, To decrease swelling/inflammation, To increase ROM, To improve nutrient delivery to tissue, To increase oxygenation perfusion, To improve muscle performance and motor function, To improve ability to perform ADL's, To improve health of tissue, To decrease soft tissue restriction, To increase flexibility/ROM, To improve endurance, To improve balance, To improve safety with gait Manual Therapy Techniques to Include: Mobilization, Soft tissue mobilization For the Purpose of:: To decrease pain, To decrease swelling/inflammation, To increase ROM Cryotherapy (ice pack, ice massage): Yes Thermo therapy (hot pack): Yes Thank you for the opportunity to evaluate your patient. For Medicare and Medicare HMO plans, please review the plan of care and approve it. It will need to be FAXED BACK to us at [phone] for Medicare purposes. Please let me know if there are questions or concerns regarding this plan of care. Physician Signature: Date:
--- NOTE | 2018-05-18 10:58 | HP.PT.NRP ---
HP - Discharge Summary (1) - Patient Information Roseline Stone was seen in my office for initial evaluation on 11/16/17. The following Plan of Care was established for this patient: Initial Frequency: 2x /Week Initial Duration: 4 Weeks - Anticipated Interventions Patient/Client Instruction: Educate patient on: Condition, Plan of Care, Risk Factors, Benefits of Fitness Program For the Purpose of:: To reduce risk of recurrence, To improve safety, To improve health and function, To foster healthy habits, To improve decision making, To facilitate caregiver knowledge, To improve self management, To prevent re-injury, To improve ability to perform tasks related to life management, To improve tolerance to ADL's Therapeutic Exercise to Include: Strength training, Power training, Endurance training, Body mechanics, Postural training, Flexibilty training, Gait and locomotor training, Passive ROM, Active ROM, Dynamic Lumbar Stabilization, Darin Exercises For the Purpose of:: To decrease pain, To decrease swelling/inflammation, To increase ROM, To improve nutrient delivery to tissue, To increase oxygenation perfusion, To improve muscle performance and motor function, To improve ability to perform ADL's, To improve health of tissue, To decrease soft tissue restriction, To increase flexibility/ROM, To improve endurance, To improve balance, To improve safety with gait Manual Therapy Techniques to Include: Mobilization, Soft tissue mobilization For the Purpose of:: To decrease pain, To decrease swelling/inflammation, To increase ROM Cryotherapy (ice pack, ice massage): Yes Thermo therapy (hot pack): Yes This patient was last seen in our office 11/16/17. Pertinent comments regarding their Physical therapy will appear below: Pt. was seen for her initial evaluation with LBP. Pt. was instructed to possible need fo HH due to recoving from cancer treatments. Pt. has not been back to PT since evaluation. She will be DC from PT at this point in time. At this point I will be discontinuing this patient from physical therapy. I would be happy to see this patient again in the future if found appropriate by the physician. Thank you! Nathan Holman
== END 2017-11-16 19:00 | disposition home or self-care (01) ==
LOC: PT 10:00
PROVIDERS: Family Provider Internal Medicine; PCP Internal Medicine; Visit Provider Internal Medicine
DX: M54.30 Sciatica, unspecified side (principal); M51.26 Other intervertebral disc displacement, lumbar region; M53.9 Dorsopathy, unspecified
CPT/HCPCS: 97162

== ENCOUNTER → 2017-12-05 06:52 | Outpatient (CLI) | payer MEDICARE, SELFPAY ==
--- NOTE | 2017-12-05 07:04 | MRI_ITS ---
STUDY: MRI LUMBAR SPINE WITHOUT CONTRAST REASON FOR EXAM: Female, 72 years old. back pain, leg pain, hip pain, hx colon ca w/ liver/lung mets. TECHNIQUE: Standardized fat and water weighted pulse sequences were obtained in the sagittal and axial planes. COMPARISON: None FINDINGS: T12-L1: There is no significant disc herniation, spinal canal or foramina stenosis. Normal lumbar lordosis. There is no substantial scoliosis. Normal conus medullaris that terminates at the L1/L2 L1-2: There is a moderate disc space narrowing and endplate spondylosis. There is a mild disc bulge and facet hypertrophy with mild central canal and mild bilateral foraminal stenosis. L2-3: There is moderate disc space narrowing and endplate spondylosis. There is a mild disc bulge with inferiorly directed left paracentral extrusion (measuring 0.8 x 0.6 x 1.6 cm) with severe left lateral recess narrowing. There is mild facet hypertrophy contributing to moderate central canal stenosis. There is moderate bilateral foraminal stenosis. L3-4: There is mild disc space narrowing and endplate spondylosis. There is a mild disc bulge and facet atrophy with mild central canal stenosis. There is mild bilateral foraminal stenosis. L4-5: There is mild disc space narrowing and endplate spondylosis. There is a mild disc bulge and facet arthropathy with mild central canal stenosis. There is minimal anterolisthesis. There is mild bilateral foraminal stenosis. L5-S1: There is mild disc space narrowing and endplate spondylosis. There is minimal anterolisthesis. There is a mild disc bulge and facet arthropathy without significant central canal stenosis. There is moderate right and mild left foraminal stenosis. Normal visualized sacral ala. Normal visualized paraspinous soft tissue structures. MRI/Spine Lumbar (Routine) IMPRESSION: L2/L3: Left disc extrusion with severe left lateral recess narrowing. Electronically Signed: Fredrick Marx MD at 8:24 EDT Tel , Service support ,
== END ==
PROVIDERS: Family Provider Internal Medicine; PCP Internal Medicine; Visit Provider Anesthesiology Pain Medicine
DX: M54.9 Dorsalgia, unspecified (principal); M79.606 Pain in leg, unspecified
CPT/HCPCS: 72148

== ENCOUNTER 2017-12-29 20:51 | Observation (INO) | payer MEDICARE, SELFPAY ==
[2017-12-29 20:52] VITALS: BP 95/47; PULSE 96; RESP 20; TEMP 36.3; O2SAT 100; BMI 27.0
[2017-12-29] MEDS: 0.9% Normal Saline 1,000 ML 1000 ML IV ×2 (22:21→22:25)
[2017-12-29] MEDS: proMETHazine 25 MG/ML Syringe 12.5 MG IV (22:21)
[2017-12-29 22:28] LABS: Absolute Lymphocyte Count 1.63 X10^3/ul (0.83-4.51); Absolute Neutrophil Count 2.7 X10^3/uL (2.0-7.7); Eosinophil# 0.03 X10^3/uL; Eosinophils% 0.7 % (0-5); Hematocrit 26.6 % (37-47); Hemoglobin 9.2 g/dl (12.0-15.0); Lymphocyte # 1.63 X10^3/ul (4.0); Lymphocyte % 35.5 % (19-41); Mean Corp Hgb Conc 34.6 g/gl (32-36); Mean Corpuscular Hgb 30.6 pg (27.0-32.0); Mean Corpuscular Volume 88.4 fL (81-99); Mean Platelet Vol. 8.1 fl (6.2-12.0); Monocyte% 4.4 % (0-10); Neutrophil # 2.72 X10^3/uL (2.7-7.7); Neutrophil % 59.2 % (47-70); POSITIVE COUNT NO; POSITIVE DIFFERENTIAL NO; POSITIVE MORPHOLOGY NO; Platelet Count 117 K/mm3 (150-450); RBC Distribution Width CV 13.5 % (11.6-14.6); RBC Distribution Width SD 43.6 fl (35.1-43.9); Red Blood Count 3.01 M/mm3 (4.2-5.4); White Blood Count 4.6 K/mm3 (4.4-11.0)
[2017-12-29 23:02] LABS: Anion Gap 8 (5-15); BUN 53 mg/dL (7-18); BUN/Creat Ratio 24.4 RATIO (10-20); Calcium,Total 9.4 mg/dL (8.5-10.1); Chloride 104 mmol/L (98-107); Creatinine, Serum 2.17 mg/dL (0.55-1.02); EST Glomerular Filtration Rate 24 mL/min (>60); Est Glom Filt Rate - Afr Amer 29 mL/min (>60); Estimated Creatinine Clearance 17.42 ml/min; Glucose 104 mg/dL (74-106); Potassium 3.6 mmol/L (3.5-5.1); Sodium Level 137 mmol/L (136-145)
--- NOTE | 2017-12-29 23:02 | ED.VISSUMM ---
- ER Visit Summary Date of Service: 12/29/17 Chief Complaint: Nausea and vomiting History of Present Illness: The patient is a 72 F nausea and vomiting for the past 10 days. Status post first treatment of fourth round of chemotherapy 10 days [address] by Dr. Helm. Saw oncology 3 days ago was given IV fluids in the office. Since then states vomiting once a day. However today had 2 episodes. No hematemesis. No diarrhea. Last bowel movement 3 days ago. She does have flatus. Complains of chills. No chest pains or shortness of breath. No urinary symptoms. Diagnosed with colon cancer with metastasis a year ago. No surgical history for cancer. She has had hysterectomy and a right total knee arthroplasty. Took Zofran at home with no relief. Concerns of dehydration. Physical Examination: General: Alert and oriented ?3, no acute distress HEENT: Normocephalic, atraumatic. Moist mucosa membranes Neck: supple, nontender. Cardiovascular: Regular rate and rhythm, no murmurs Respiratory: Normal breath sounds, symmetric, no distress Abdomen: Soft, nontender, nondistended. Normal bowel sounds Extremities: Nontender, no edema, pulses intact ?4 Neuro: no focal neurological deficits. Test Results: WBC 4.6. Hemoglobin 9.2. Creatinine 2.17. Emergency Department Course and Treatment: Patient given IV fluids. Phenergan given. I did check labs. hemoglobin chronic at 9.2. Creatinine 2.17 which is elevated from 0.8 previously. Discussed with daughter bedside, labs were done 3 days ago outpatient, she had results on the phone with a creatinine 1.2. Patient likely with prerenal kidney injury with her history. However with her chemotherapy and symptoms over 10 days, do feel she benefited from observations with IV fluids and recheck of her labs. Discussed with Dr. Reddy who will evaluate for admission. Treatment Plan: [] Disposition: Admission Impression: 1. Acute kidney injury 2. Vomiting 3. Chemotherapy 4. Chronic anemia This note was generated with [employer] dictation software. It may contain incorrect words, spelling, and punctuation that were not noted in review of the chart prior to signing ED Disposition - Plan for ED Patient: Disposition: Acute Care Hospital [facility] Chief Complaint: Nausea/Vomiting Diagnosis: Acute kidney injury, Vomiting, Chemotherapy, Chronic anemia Referrals: Annetta Carey DO [Primary Care Provider] -
--- NOTE | 2017-12-30 00:25 | PCM.HP.STD ---
Problem List (1) Acute kidney injury Status: Acute (2) Vomiting Status: Acute (3) Chronic anemia Status: Chronic (4) GI bleed Status: Chronic Qualifiers: (5) Normochromic normocytic anemia Status: Chronic (6) Colon cancer metastasized to liver Status: Chronic (7) Colon cancer metastasized to lung Status: Chronic (8) Adenocarcinoma of sigmoid colon Status: Chronic (9) HTN (hypertension) Status: Chronic Qualifiers: (10) Diabetes mellitus, type II Status: Chronic Qualifiers: (11) Depression with anxiety Status: Chronic History of Present Illness Date of Admission: 12/30/17 Chief Complaint: Vomiting on and off for last 10 days after chemo The patient is a 72 year old F with multiple comorbidities including 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 She was diagnosed carcinoma sigmoid colon in November 2016 and was thought nonresectable with metastatic and lung and started on chemo in January or February 2017. She was on Xarelto for PE but was discontinued because of 2 3 episodes of GI bleed, in September and November 2017; along with epistaxis. [] In ER, this time she was found to have creatinine 2.17, BUN 53, hemoglobin 9.2 and platelet count 117. Patient feels very weak. She lost about 20 pounds since he started chemotherapy in February 2017. Her oncologist is Dr. Helm. Past Medical History Past Medical History (Chronic Problems): Chronic Problems Chronic anemia (Chronic) GI bleed (Chronic) Normochromic normocytic anemia (Chronic) Colon cancer metastasized to liver (Chronic) Colon cancer metastasized to lung (Chronic) Adenocarcinoma of sigmoid colon (Chronic) HTN (hypertension) (Chronic) Diabetes mellitus, type II (Chronic) Depression with anxiety (Chronic) Allergies metoclopramide [From Reglan] Adverse Reaction (Verified 12/29/17 20:55) Other ANXIETY, RESTLESSNESS Home Medications: Ambulatory Orders Medication Instructions Recorded Insulin Aspart [Novolog Flexpen] 12 units SC PRN PRN 12/08/16 Insulin Detemir [Levemir FlexPen] 100 units SC DAILY 09/23/17 Venlafaxine XR [Effexor Xr] 37.5 mg PO DAILY 10/01/17 Triamterene/Hydrochlorothiazid 1 tab PO DAILY 11/09/17 [Triamterene-Hctz 37.5-25 mg Tb] Oxycodone [Oxyir] 5 mg PO Q6H PRN PRN 7 Days #20 tab 11/11/17 Pantoprazole Sodium [Protonix] 40 mg PO DAILY 30 Days #30 tab 11/11/17 ALPRAZolam [Xanax] 0.25 mg PO BID PRN PRN 12/29/17 Metformin HCl 500 mg PO DAILY 12/29/17 Surgical History: hysterectomy, - - R TKR, Hysterectomy/BLSOO. Psychiatric History: Anxiety, Depression RECREATIONAL DIRECTOR History: No pertinent RECREATIONAL DIRECTOR history Smoking Status: Never smoker - *Family History Maternal History Items: Heart Disease, Hypertension Paternal History Items: Heart Disease, Hypertension Review of Systems Constitutional: Reports: Anorexia, Weight Change. Denies: Chills, Fever HEENT: Denies: Head Aches, Sinus Congestion, Sinus Drainage Cardiovascular: Denies: Chest Pain, Palpitations Respiratory: Denies: Cough, Shortness of breath at rest, Sputum production Gastrointestinal: Reports: Abdominal Pain - She had abdominal pain for about 2 days but resolved today morning, Nausea, Vomiting Genitourinary: Denies: Dysuria Musculoskeletal: Reports: Joint Pain. Denies: Joint Tenderness Skin: Denies: Rash, Wounds Neurological: Denies: Numbness, Tingling, Focal weakness Psychiatric: Reports: Anxiety. Denies: Depression, Homicidal Ideations, Suicidal Ideations Hematologic/ Lymphatic: Reports: Easy Bruising, Easy Bleeding VTE Information - Inpt Only VTE Present on Admission: No VTE Mechan Device Prophylaxis: SCD's VTE Pharm Prophylaxis ordered?: No Reason prophylaxis not ordered:: Medical Contraindication - Recurrent history of GI bleed and epistaxis, thrombocytopenia and anemia Patient Problems: Active and Suspected Problems Acute kidney injury (Acute) Vomiting (Acute) - Physical Exam General: Alert, Oriented x3, Cooperative HEENT: Atraumatic, PERRLA, EOMI, Normocephalic Neck: Supple, No JVD, Negative Carotid Bruits Lungs: Clear to auscultation, Normal air movement, No rhonchi, No wheeze Cardiovascular: Regular rate, Regular Rhythm, Normal S1, Normal S2, No murmurs Abdomen: Bowel Sounds Present, Soft, Non Tender, Non-Distended Extremities: No edema, Capillary Refill Less than 3 Seconds Skin: No rashes, No breakdown Musculoskeletal: No Tenderness to Palpation of Joints or Extremities, Arthritic Changes, Muscle Wasting Neurological: Cranial nerves II-XII grossly intact Psych/Mental Status: Normal Affect, Appropriate Vital Signs Temp Pulse Resp BP Pulse Ox 97.4 F L 96 20 H 95/47 L 100 12/29/17 20:52 12/29/17 20:52 12/29/17 20:52 12/29/17 20:52 12/29/17 20:52 Oxygen Delivery Method Room Air Weight: 143 lb Body Mass Index (BMI) 27.0 Finger Stick Blood Glucose 340 Laboratory Tests Past 24 Hrs 12/29/17 12/29/17 22:15 22:15 WBC 4.6 RBC 3.01 L Hgb 9.2 L Hct 26.6 L MCV 88.4 MCH 30.6 MCHC 34.6 RDW 13.5 RDW Differential 43.6 Plt Count 117 L MPV 8.1 Immature Gran % (Auto) 0.200 Neut % (Auto) 59.2 Lymph % (Auto) 35.5 [place] % (Auto) 4.4 Eos % (Auto) 0.7 Baso % (Auto) 0.0 Absolute Neuts (auto) 2.7 Absolute Lymphs (auto) 1.63 Total Counted Not Reportable Sodium 137 Potassium 3.6 Chloride 104 Carbon Dioxide 25.0 Anion Gap 8 BUN 53 H Creatinine 2.17 H Estim Creat Clear Calc 17.42 Est GFR (MDRD) Af Amer 29 L Est GFR (MDRD) Non-Af 24 L BUN/Creatinine Ratio 24.4 H Glucose 104 Calcium 9.4 Assessment/Plan Active and Suspected Problems Acute kidney injury (Acute) Vomiting (Acute) The patient is a 72 year old F with multiple comorbidities including 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 She was diagnosed carcinoma sigmoid colon in November 2016 and was thought nonresectable with metastatic and lung and started on chemo in January or February 2017. She was on Xarelto for PE but was discontinued because of 2 3 episodes of GI bleed, in September and November 2017; along with epistaxis. [] In ER, this time she was found to have creatinine 2.17, BUN 53, hemoglobin 9.2 and platelet count 117. Patient feels very weak. She lost about 20 pounds since he started chemotherapy in January/February 2017. Her oncologist is Dr. Helm. 1. Acute kidney injury;, prerenal etiology secondary to vomiting/possible ATN due to chemotherapeutic side effect: Patient is being admitted on the [facility] floor. Started on IV fluid normal saline; she had 2 L of IV fluid normal 7 bolus and then 250 mils per hour. Monitor electrolytes and kidney function. If kidney function does not improve, will require retroperitoneal sonogram and nephrology consult. Monitor YUDI's. 2. Intractable/persistent nausea and vomiting; chemotherapeutic side effect: On Phenergan and Zofran. 3. CA sigmoid colon stage IV with metastases to lung: Consult Dr. Page. Currently, she is not having fever or chills. Blood pressure was low 95/47 in ER but recovered 111/60 after IV fluid resuscitation. No leukopenia 4. Chronic normocytic normochromic anemia most probably due to neoplastic/chemotherapeutic side effect lung with thrombocytopenia: 5. Type II diabetes mellitus : Accu-Chek before meals and at bedtime and cover with sliding scale. Continue home dose of Levemir insulin although decreased dose. Other comorbidities include hypertension, depression/anxiety, and moderate protein calorie malnutrition: Home medication reconciliation done. DVT prophylaxis: Bilateral SCDs. Pharmacological prophylaxis contraindicated in view of history of recurrent GI bleed as mentioned above and anemia, and thrombocytopenia. Code Visit Inpatient E&M: 30294 In Hosp L3
[2017-12-30 00:31] VITALS: BP 111/60; PULSE 87; RESP 16; O2SAT 97
[2017-12-30 00:49] VITALS: BMI 27.6
[2017-12-30 00:58] VITALS: BMI 27.7
[2017-12-30 01:02] LABS: Magnesium 2.2 mg/dL (1.6-2.6)
[2017-12-30 01:43] VITALS: BP 154/84; PULSE 88; RESP 14; TEMP 36.6; O2SAT 98
[2017-12-30 01:46] VITALS: BP 154/84; PULSE 88; RESP 14; TEMP 36.6; O2SAT 98
[2017-12-30] MEDS: 0.9% NaCl Peripheral Flush Adult/Peds IV ×2 (02:22→05:53)
[2017-12-30] MEDS: 0.9% Normal Saline 1,000 ML 250 ML IV (02:22)
[2017-12-30] MEDS: 0.9% Normal Saline 1,000 ML 150 ML IV ×3 (06:13→19:28)
[2017-12-30 06:14] LABS: Absolute Lymphocyte Count 1.49 X10^3/ul (0.83-4.51); Absolute Neutrophil Count 1.8 X10^3/uL (2.0-7.7); Eosinophil# 0.03 X10^3/uL; Eosinophils% 0.9 % (0-5); Hemoglobin 8.4 g/dl (12.0-15.0); Lymphocyte # 1.49 X10^3/ul (4.0); Lymphocyte % 42.6 % (19-41); Mean Corpuscular Hgb 31.6 pg (27.0-32.0); Mean Corpuscular Volume 90.2 fL (81-99); Mean Platelet Vol. 7.9 fl (6.2-12.0); Monocyte# 0.15 X10^3/uL; Monocyte% 4.3 % (0-10); Neutrophil # 1.82 X10^3/uL (2.7-7.7); Neutrophil % 51.9 % (47-70); Platelet Count 117 K/mm3 (150-450); RBC Distribution Width CV 12.9 % (11.6-14.6); RBC Distribution Width SD 41.2 fl (35.1-43.9); Red Blood Count 2.66 M/mm3 (4.2-5.4); White Blood Count 3.5 K/mm3 (4.4-11.0)
[2017-12-30 06:20] LABS: POSITIVE COUNT NO; POSITIVE DIFFERENTIAL NO; POSITIVE MORPHOLOGY NO
[2017-12-30 06:47] LABS: BUN 46 mg/dL (7-18); BUN/Creat Ratio 24.7 RATIO (10-20); Calcium,Total 7.8 mg/dL (8.5-10.1); Chloride 110 mmol/L (98-107); Creatinine, Serum 1.86 mg/dL (0.55-1.02); EST Glomerular Filtration Rate 28 mL/min (>60); Est Glom Filt Rate - Afr Amer 34 mL/min (>60); Estimated Creatinine Clearance 20.33 ml/min; Glucose 167 mg/dL (74-106); Potassium 3.8 mmol/L (3.5-5.1); Sodium Level 140 mmol/L (136-145)
[2017-12-30 06:48] LABS: Anion Gap 7 (5-15)
--- NOTE | 2017-12-30 08:18 | PCM.PN.HOSP ---
Patient Problems: Active and Suspected Problems Acute kidney injury (Acute) Vomiting (Acute) Subjective: Patient is a 72-year-old lady with history of stage IV adenocarcinoma involving the colon with metastases to the lungs presented with progressive generalized weakness associated with nausea vomiting. Patient was found to have acute kidney injury admitted to regular nursing floor for subsequent management Objective: GENERAL: cooperative HEENT: Clear conjunctiva, NECK; supple, normal thyroid, n CHEST: Diminished to auscultation bilaterally, HEART: Regular S1 S2, no audible murmurs ABDOMEN: soft, non-tender, normoactive bowel sounds, RECTAL: deferred EXTREMITIES: no clubbing, no cyanosis. SHIELD CLEANER: Awake, no lateralizing signs. SKIN: No Rash Vitals/I&O's: Vital Signs Temp Pulse Resp BP Pulse Ox 97.8 F 88 14 154/84 H 98 12/30/17 01:46 12/30/17 01:46 12/30/17 01:46 12/30/17 01:46 12/30/17 01:46 Oxygen Delivery Method Room Air Weight: 66.4 kg Body Mass Index (BMI) 27.6 Intake and Output for Last 24 Hours 12/28/17 12/29/17 12/30/17 23:59 23:59 23:59 Intake Total 817 / 817 Output Total 300 / 300 Balance 517 / 517 Laboratory Results 12/30/17 05:50: Sodium 140, Potassium 3.8, Chloride 110 H, Carbon Dioxide 23.0, Anion Gap 7, BUN 46 H, Creatinine 1.86 H, Estim Creat Clear Calc 20.33, Est GFR (MDRD) Af Amer 34 L, Est GFR (MDRD) Non-Af 28 L, BUN/Creatinine Ratio 24.7 H, Glucose 167 H, Calcium 7.8 L 12/30/17 05:50: WBC 3.5 L, RBC 2.66 L, Hgb 8.4 L, Hct 24.0 L, MCV 90.2, MCH 31.6, MCHC 35.0, RDW 12.9, RDW Differential 41.2, Plt Count 117 L, MPV 7.9, Immature Gran % (Auto) 0.300, Neut % (Auto) 51.9, Lymph % (Auto) 42.6 H, [place] % (Auto) 4.3, Eos % (Auto) 0.9, Baso % (Auto) 0.0, Absolute Neuts (auto) 1.8 L, Absolute Lymphs (auto) 1.49, Total Counted Not Reportable Current Medications Al Hydroxide/Mg Hydroxide (Mylanta Ii) 30 ml PO Q6H PRN PRN PRN Reason: Gastric Burning Bisacodyl (Dulcolax) 5 mg PO DAILY PRN PRN PRN Reason: Constipation Famotidine (Pepcid) 20 mg PO BID [facility] Heparin Sodium (Beef Lung) (Heparin 500 Unit/5 Ml (100/Ml)) 500 unit IV UD PRN PRN Reason: HEPARIN FLUSH Sodium Chloride () 1,000 mls @ 150 mls/hr IV .Q6H40M [facility] Last Admin: 12/30/17 06:13 Dose: 150 mls/hr Magnesium Hydroxide (Milk Of Magnesia) 30 ml PO DAILY PRN PRN PRN Reason: Constipation Morphine Sulfate () 1 - 2 mg IV Q3H PRN PRN PRN Reason: Severe Pain (pain scale 6-10) Nutritional Formula (Lactose Free) (Glucerna Shake) 120 ml PO 4X/DAY [facility] Ondansetron HCl (Zofran) 4 mg IV Q6H PRN PRN PRN Reason: Nausea Oxycodone HCl (Oxyir) 5 mg PO Q4H PRN PRN PRN Reason: Moderate Pain (pain scale 4-5) Promethazine HCl (Phenergan) 12.5 mg IV Q4H PRN PRN Reason: Nausea/vomiting Senna/Docusate Sodium (Senokot-S, Jasmin-Colace) 2 tablet PO BID [facility] Sodium Chloride () 5 - 30 ml IV UD PRN PRN Reason: SALINE FLUSH Last Admin: 12/30/17 05:53 Dose: 30 ml Sodium Chloride () 10 ml IV UD PRN PRN Reason: VAD FLUSH Medical Necessity - Tobacco Use Smoking Status: Never smoker Assessment/Plan Active and Suspected Problems Acute kidney injury (Acute) Vomiting (Acute) Patient is a 72-year-old lady with history of stage IV adenocarcinoma involving the colon with metastases to the lungs presented with progressive generalized weakness associated with nausea vomiting. Patient was found to have acute kidney injury admitted to regular nursing floor for subsequent management 1. Acute kidney injury secondary to ATN from dehydration on IV fluids with monitoring of electrolyte 2. Intractable nausea vomiting treated symptomatically 3. Adenocarcinoma involving the colon with metastases to the lungs followed by Dr. Cuello as outpatient 3. Anemia secondary to anemia of malignancy monitoring H&H with plans to transfuse if patient becomes symptomatic or hemoglobin falls below 7 4. Diabetes mellitus type 2 patient is on Levemir did continue also placed on Accu-Cheks before meals and at bedtime with sliding scale coverage 5. Hypertension-blood pressure controlled, home medications continued with dose adjustment as needed 6. Depression with anxiety 7. Moderate protein calorie malnutrition 8. Thrombocytopenia chemo induced 9. DVT prophylaxis chemical prophylaxis was avoided in view of patient low platelet count Code Visit Inpatient E&M: 62128 Subs Hosp L3
--- NOTE | 2017-12-30 08:22 | PN_ITS ---
Patient Problems: Active and Suspected Problems Acute kidney injury (Acute) Vomiting (Acute) Subjective: Patient is a 72-year-old lady with history of stage IV adenocarcinoma involving the colon with metastases to the lungs presented with progressive generalized weakness associated with nausea vomiting. Patient was found to have acute kidney injury admitted to regular nursing floor for subsequent management Objective: GENERAL: cooperative HEENT: Clear conjunctiva, NECK; supple, normal thyroid, n CHEST: Diminished to auscultation bilaterally, HEART: Regular S1 S2, no audible murmurs ABDOMEN: soft, non-tender, normoactive bowel sounds, RECTAL: deferred EXTREMITIES: no clubbing, no cyanosis. FINANCIAL REPRESENTATIVE: Awake, no lateralizing signs. SKIN: No Rash Vitals/I&O's: Vital Signs Temp Pulse Resp BP Pulse Ox 97.8 F 88 14 154/84 H 98 12/30/17 01:46 12/30/17 01:46 12/30/17 01:46 12/30/17 01:46 12/30/17 01:46 Oxygen Delivery Method Room Air Weight: 66.4 kg Body Mass Index (BMI) 27.6 Intake and Output for Last 24 Hours 12/28/17 12/29/17 12/30/17 23:59 23:59 23:59 Intake Total 817 / 817 Output Total 300 / 300 Balance 517 / 517 Laboratory Results 12/30/17 05:50: Sodium 140, Potassium 3.8, Chloride 110 H, Carbon Dioxide 23.0, Anion Gap 7, BUN 46 H, Creatinine 1.86 H, Estim Creat Clear Calc 20.33, Est GFR (MDRD) Af Amer 34 L, Est GFR (MDRD) Non-Af 28 L, BUN/Creatinine Ratio 24.7 H, Glucose 167 H, Calcium 7.8 L 12/30/17 05:50: WBC 3.5 L, RBC 2.66 L, Hgb 8.4 L, Hct 24.0 L, MCV 90.2, MCH 31.6 , MCHC 35.0, RDW 12.9, RDW Differential 41.2, Plt Count 117 L, MPV 7.9, Immature Gran % (Auto) 0.300, Neut % (Auto) 51.9, Lymph % (Auto) 42.6 H, [place] % (Auto) 4.3, Eos % (Auto) 0.9, Baso % (Auto) 0.0, Absolute Neuts (auto) 1.8 L, Absolute Lymphs (auto) 1.49, Total Counted Not Reportable Current Medications Al Hydroxide/Mg Hydroxide (Mylanta Ii) 30 ml PO Q6H PRN PRN PRN Reason: Gastric Burning Bisacodyl (Dulcolax) 5 mg PO DAILY PRN PRN PRN Reason: Constipation Famotidine (Pepcid) 20 mg PO BID [facility] Heparin Sodium (Beef Lung) (Heparin 500 Unit/5 Ml (100/Ml)) 500 unit IV UD PRN PRN Reason: HEPARIN FLUSH Sodium Chloride () 1,000 mls @ 150 mls/hr IV .Q6H40M [facility] Last Admin: 12/30/17 06:13 Dose: 150 mls/hr Magnesium Hydroxide (Milk Of Magnesia) 30 ml PO DAILY PRN PRN PRN Reason: Constipation Morphine Sulfate () 1 - 2 mg IV Q3H PRN PRN PRN Reason: Severe Pain (pain scale 6-10) Nutritional Formula (Lactose Free) (Glucerna Shake) 120 ml PO 4X/DAY [facility] Ondansetron HCl (Zofran) 4 mg IV Q6H PRN PRN PRN Reason: Nausea Oxycodone HCl (Oxyir) 5 mg PO Q4H PRN PRN PRN Reason: Moderate Pain (pain scale 4-5) Promethazine HCl (Phenergan) 12.5 mg IV Q4H PRN PRN Reason: Nausea/vomiting Senna/Docusate Sodium (Senokot-S, Jasmin-Colace) 2 tablet PO BID [facility] Sodium Chloride () 5 - 30 ml IV UD PRN PRN Reason: SALINE FLUSH Last Admin: 12/30/17 05:53 Dose: 30 ml Sodium Chloride () 10 ml IV UD PRN PRN Reason: VAD FLUSH Medical Necessity - Tobacco Use Smoking Status: Never smoker Assessment/Plan Active and Suspected Problems Acute kidney injury (Acute) Vomiting (Acute) Patient is a 72-year-old lady with history of stage IV adenocarcinoma involving the colon with metastases to the lungs presented with progressive generalized weakness associated with nausea vomiting. Patient was found to have acute kidney injury admitted to regular nursing floor for subsequent management 1. Acute kidney injury secondary to ATN from dehydration on IV fluids with monitoring of electrolyte 2. Intractable nausea vomiting treated symptomatically 3. Adenocarcinoma involving the colon with metastases to the lungs followed by Dr. Cuello as outpatient 3. Anemia secondary to anemia of malignancy monitoring H&H with plans to transfuse if patient becomes symptomatic or hemoglobin falls below 7 4. Diabetes mellitus type 2 patient is on Levemir did continue also placed on Accu-Cheks before meals and at bedtime with sliding scale coverage 5. Hypertension-blood pressure controlled, home medications continued with dose adjustment as needed 6. Depression with anxiety 7. Moderate protein calorie malnutrition 8. Thrombocytopenia chemo induced 9. DVT prophylaxis chemical prophylaxis was avoided in view of patient low platelet count Code Visit Inpatient E&M: 20594 Subs Hosp L3
[2017-12-30 09:10] VITALS: BP 156/60; PULSE 103; RESP 16; TEMP 36.4; O2SAT 100
[2017-12-30] MEDS: Senna/Docusate Sodium 1 Tablet 2 TABLET PO ×2 (09:17→21:33)
[2017-12-30] MEDS: Famotidine 20 MG Tablet PO ×2 (09:17→21:34)
[2017-12-30 11:05] LABS: Bedside Glucose 259 mg/dL (70-110)
[2017-12-30 14:03] VITALS: BP 113/54; PULSE 108; RESP 18; TEMP 37.1; O2SAT 95
--- NOTE | 2017-12-30 14:52 | NURSING ---
spoke with rocky, nurse at Dr. Helm's office and notified her of consult. She states that office hours are until 3:10 and that pending a clear schedule, he may be here afterwards.
--- NOTE | 2017-12-30 16:26 | PCM.CONS.B ---
Problem List (1) Acute kidney injury Status: Acute (2) Vomiting Status: Acute Qualifiers: Vomiting type: cyclical vomiting Vomiting Intractability: non-intractable Nausea presence: with nausea Qualified Code(s): G43.A0 - Cyclical vomiting, not intractable (3) Sciatic nerve pain Status: Chronic Qualifiers: Laterality: unspecified laterality Qualified Code(s): M54.30 - Sciatica, unspecified side (4) Colon cancer metastasized to liver Status: Chronic (5) Adenocarcinoma of sigmoid colon Status: Chronic - Consult Date of Consult: 12/30/[address] Trinidad regarding patient with metastatic rectal cancer with liver metastasis presented with acute renal injury with intractable nausea and vomiting. She also has severe sciatic nerve pain degenerative disc disease. My final recommendation will be communicated by electronic medical records. - Reason for Consult History of Present Illness Date of Admission: 12/30/17 Chief Complaint: Vomiting & nausea after chemotherapy. History of sciatic nerve pain from DDD. 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 She started palliative chemotherapy with FOLIRI about 10 days ago. Initially had nausea area after chemotherapy. She received IV fluid in my office a week ago. Her baseline creatinine was 1.2. She also has Type 2 diabetes on insulin & Metformin. She was diagnosed carcinoma sigmoid colon in November 2016 and was thought nonresectable with metastasis of liver and started on chemo in February 2017. She was stable on Xeloda and Avastin until November 2017, she had a incidental PE with Xarelto but was discontinued because of episodes of GI bleed, in September and November 2017; along with epistaxis. Although she denied diarrhea, she still has severe back pain and has not been eating much for the last 2 days. She has been drinking fluids but has recurrent nausea vomiting episodes. In ER, this time she was found to have creatinine 2.17, BUN 53, hemoglobin 9.2 and platelet count 117. Patient feels very weak. She lost about 20 pounds since last year. Past Medical History Past Medical History (Chronic Problems): Chronic Problems GI bleed (Chronic) Normochromic normocytic anemia (Chronic) Colon cancer metastasized to liver (Chronic) Colon cancer metastasized to lung (Chronic) Adenocarcinoma of sigmoid- rectal colon (Chronic) HTN (hypertension) (Chronic) Diabetes mellitus, type II (Chronic) Depression with anxiety (Chronic) Allergies metoclopramide [From Reglan] Adverse Reaction (Verified 12/29/17 20:55) Other ANXIETY, RESTLESSNESS Home Medications: Ambulatory Orders Medication Instructions Recorded Insulin Aspart [Novolog Flexpen] 12 units SC PRN PRN 12/08/16 Insulin Detemir [Levemir FlexPen] 100 units SC DAILY 09/23/17 Venlafaxine XR [Effexor Xr] 37.5 mg PO DAILY 10/01/17 Triamterene/Hydrochlorothiazid 1 tab PO DAILY 11/09/17 [Triamterene-Hctz 37.5-25 mg Tb] Oxycodone [Oxyir] 5 mg PO Q6H PRN PRN 7 Days #20 tab 11/11/17 Pantoprazole Sodium [Protonix] 40 mg PO DAILY 30 Days #30 tab 11/11/17 ALPRAZolam [Xanax] 0.25 mg PO BID PRN PRN 12/29/17 Metformin HCl 500 mg PO DAILY 12/29/17 Surgical History: hysterectomy, - - R TKR, Hysterectomy/BLSOO. Psychiatric History: Anxiety, Depression SISTER SUPERIOR History: No pertinent SISTER SUPERIOR history Smoking Status: Never smoker - *Family History Maternal History Items: Heart Disease, Hypertension Paternal History Items: Heart Disease, Hypertension Review of Systems Constitutional: Reports: Anorexia, Weight Change. Denies: Chills, Fever HEENT: Denies: Head Aches, Sinus Congestion, Sinus Drainage Cardiovascular: Denies: Chest Pain, Palpitations Respiratory: Denies: Cough, Shortness of breath at rest, Sputum production Gastrointestinal: Reports: Abdominal Pain - She had abdominal pain for about 2 days but resolved today morning, Nausea, Vomiting Genitourinary: Denies: Dysuria Musculoskeletal: Reports: Joint Pain. Denies: Joint Tenderness Skin: Denies: Rash, Wounds Neurological: Denies: Numbness, Tingling, Focal weakness Psychiatric: Reports: Anxiety. Denies: Depression, Homicidal Ideations, Suicidal Ideations Hematologic/ Lymphatic: Reports: Easy Bruising, Easy Bleeding Patient Problems: Active and Suspected Problems Acute kidney injury (Acute) intractable nausea & vomiting (Acute) sciatic back pain (Chronic) - Physical Exam General: Alert, Oriented x3, Cooperative HEENT: Atraumatic, PERRLA, EOMI, Normocephalic Neck: Supple, No JVD, Negative Carotid Bruits Lungs: Clear to auscultation, Normal air movement, No rhonchi, No wheeze Cardiovascular: Regular rate, Regular Rhythm, Normal S1, Normal S2, No murmurs Abdomen: Bowel Sounds Present, Soft, Non Tender, Non-Distended Extremities: No edema, Capillary Refill Less than 3 Seconds Skin: No rashes, No breakdown Musculoskeletal: No Tenderness to Palpation of Joints or Extremities, Arthritic Changes, Muscle Wasting Neurological: Cranial nerves II-XII grossly intact Psych/Mental Status: Normal Affect, Appropriate Intake & Output 12/27/17 12/28/17 12/29/17 12/30/17 23:59 23:59 23:59 23:59 Intake Total 2028 Output Total 300 / 300 Balance 1728 Weight: 143 lb 146 lb 6.191 oz Vital Signs Temp Pulse Resp BP Pulse Ox 12/30/17 14:03 98.7 F 108 H 18 113/54 L 95 12/30/17 09:10 97.5 F L 103 H 16 156/60 H 100 Oxygen Delivery Method Room Air Weight: 143 lb Body Mass Index (BMI) 27.0 Finger Stick Blood Glucose 340 Laboratory Results - last 24 hr 12/29/17 12/29/17 12/29/17 22:15 22:15 22:15 WBC 4.6 RBC 3.01 L Hgb 9.2 L Hct 26.6 L MCV 88.4 MCH 30.6 MCHC 34.6 RDW 13.5 RDW Differential 43.6 Plt Count 117 L MPV 8.1 Immature Gran % (Auto) 0.200 Neut % (Auto) 59.2 Lymph % (Auto) 35.5 Gillespie % (Auto) 4.4 Eos % (Auto) 0.7 Baso % (Auto) 0.0 Absolute Neuts (auto) 2.7 Absolute Lymphs (auto) 1.63 Total Counted Not Reportable Sodium 137 Potassium 3.6 Chloride 104 Carbon Dioxide 25.0 Anion Gap 8 BUN 53 H Creatinine 2.17 H Estim Creat Clear Calc 17.42 Est GFR (MDRD) Af Amer 29 L Est GFR (MDRD) Non-Af 24 L BUN/Creatinine Ratio 24.4 H Glucose 104 Calcium 9.4 Magnesium 2.2 POC Glucose 12/30/17 12/30/17 12/30/17 05:50 05:50 11:01 WBC 3.5 L RBC 2.66 L Hgb 8.4 L Hct 24.0 L MCV 90.2 MCH 31.6 MCHC 35.0 RDW 12.9 RDW Differential 41.2 Plt Count 117 L MPV 7.9 Immature Gran % (Auto) 0.300 Neut % (Auto) 51.9 Lymph % (Auto) 42.6 H Gillespie % (Auto) 4.3 Eos % (Auto) 0.9 Baso % (Auto) 0.0 Absolute Neuts (auto) 1.8 L Absolute Lymphs (auto) 1.49 Total Counted Not Reportable Sodium 140 Potassium 3.8 Chloride 110 H Carbon Dioxide 23.0 Anion Gap 7 BUN 46 H Creatinine 1.86 H Estim Creat Clear Calc 20.33 Est GFR (MDRD) Af Amer 34 L Est GFR (MDRD) Non-Af 28 L BUN/Creatinine Ratio 24.7 H Glucose 167 H Calcium 7.8 L Magnesium POC Glucose 259 H Assessment/Plan Active and Suspected Problems Acute kidney injury (Acute) Vomiting (Acute) Chronic/acute anemia Sciatic pain Metastatic colon cancer 1. Acute kidney injury; prerenal etiology secondary to vomiting/possible ATN due to drugs (5FU/metformin) & dehydration: Plan: - Continue IV fluid normal saline; Monitor electrolytes and kidney function. If kidney function does not improve, nephrology consult. - Monitor YUDI's. - Discontinue metformin 2. Intractable/persistent nausea and vomiting; chemotherapeutic side effect & pain: Plan: -Continue Phenergan/haldol and Zofran. 3. Anemia secondary to chemotherapy & possible GI blood loss Plan: -Stool for Hemoccult & monitor CBC for possible blood transfusion -Transfuse blood if hemoglobin < 7.0 gm/dl or stool is positive. 4. Sciatic pain Plan: -Follow with pain management, Dr. Del Rio on Tuesday for epidural injection. 5. Metastatic colon cancer. Plan: -Return to office next week for next cycle of chemotherapy. -Dose reduction with subsequent cycles of chemotherapy; decreased Camptosar & Omit 5FU push and leucovorin. cc: Dr. Francisco Hernandez; Dr. Gal Trinidad; Dr. Darwin Helm
[2017-12-30 17:31] LABS: Bedside Glucose 307 mg/dL (70-110)
--- NOTE | 2017-12-30 18:57 | NURSING ---
1100 bgt= 259- was documented on NOV for novolog incorrectly at 279
[2017-12-30 19:30] VITALS: BP 101/83; PULSE 94; RESP 16; TEMP 37.4; O2SAT 99
[2017-12-30 19:45] LABS: International Normalized Ratio 1.1
[2017-12-30 21:40] LABS: Bedside Glucose 146 mg/dL (70-110)
[2017-12-31] MEDS: 0.9% Normal Saline 1,000 ML 150 ML IV ×2 (02:14→10:20)
[2017-12-31 02:36] VITALS: BP 134/48; PULSE 72; RESP 16; TEMP 37.1; O2SAT 98
[2017-12-31] MEDS: oxyCODONE 5 MG Tablet PO (02:41)
[2017-12-31 03:08] LABS: Bacteria 0 SEEN /hpf (None Seen); Mucous, Urine 0 SEEN /hpf (<or=2+); Red Blood Cells-Urine 0 SEEN /hpf (0-5)
[2017-12-31 03:09] LABS: Color, Urine Yellow (Yellow); Glucose, Dipstick 250 mg/dl (Normal); Ketone-Dipstick Negative (Negative); Leukocyte Esterase-Dipstick Negative /ul (Negative); Nitrite-Dipstick Negative (Negative); Occult Blood-Urine Negative /ul (Negative); Protein-Dipstick 30 mg/dl (Negative); Urine Bilirubin Dipstick Negative (Negative); Urine Clarity Clear (Clear); Urine Urobilinogen Normal (Normal)
[2017-12-31 03:30] LABS: Squamous Epithelial Cells - UA 0-5 SEEN /hpf (5-10); White Blood Cells 0-5 SEEN /hpf (0-5)
[2017-12-31] MEDS: proMETHazine 25 MG/ML Syringe 12.5 MG IV (05:33)
[2017-12-31 06:12] LABS: Anion Gap 7 (5-15); BUN 33 mg/dL (7-18); BUN/Creat Ratio 26.8 RATIO (10-20); Calcium,Total 7.8 mg/dL (8.5-10.1); Chloride 114 mmol/L (98-107); Creatinine, Serum 1.23 mg/dL (0.55-1.02); EST Glomerular Filtration Rate 46 mL/min (>60); Est Glom Filt Rate - Afr Amer 55 mL/min (>60); Estimated Creatinine Clearance 30.74 ml/min; Glucose 127 mg/dL (74-106); Magnesium 1.7 mg/dL (1.6-2.6); Potassium 3.7 mmol/L (3.5-5.1); Sodium Level 144 mmol/L (136-145)
[2017-12-31 06:13] LABS: Hematocrit 20.9 % (37-47); Hemoglobin 7.3 g/dl (12.0-15.0); Mean Corp Hgb Conc 34.9 g/gl (32-36); Mean Corpuscular Hgb 31.5 pg (27.0-32.0); Mean Corpuscular Volume 90.1 fL (81-99); Mean Platelet Vol. 7.8 fl (6.2-12.0); Platelet Count 109 K/mm3 (150-450); RBC Distribution Width CV 12.9 % (11.6-14.6); RBC Distribution Width SD 40.2 fl (35.1-43.9); Red Blood Count 2.32 M/mm3 (4.2-5.4); White Blood Count 3.2 K/mm3 (4.4-11.0)
[2017-12-31 06:14] LABS: Scan Indicated on CBC? Y/N NO
[2017-12-31 08:00] VITALS: BP 129/74; PULSE 100; RESP 20; TEMP 36.9; O2SAT 95
--- NOTE | 2017-12-31 08:01 | DCINST_ITS ---
- Discharge Diagnoses Current Active Problems: Current Active and Chronic Problems Acute kidney injury (Acute) Vomiting (Acute) Chronic anemia (Chronic) Sciatic nerve pain (Chronic) You will use the following diet at home:: Calorie/Carbohydrate Controlled ( specify 1200, 1400, etc) - 1800 Discharge Activity: Return to Normal Activity, May not drive while taking narcotic pain medications. Allergies/Adverse Reactions: Allergies metoclopramide [From Reglan] Adverse Reaction (Verified 12/29/17 20:55) Other ANXIETY, RESTLESSNESS Medications to take at Discharge Insulin Aspart [Novolog Flexpen] 12 units SC PRN PRN 12/08/16 Insulin Detemir [Levemir FlexPen] 100 units SC DAILY 09/23/17 Venlafaxine XR [Effexor Xr] 37.5 mg PO DAILY 10/01/17 Oxycodone [Oxyir] 5 mg PO Q6H PRN PRN 7 Days #20 tab 11/11/17 ALPRAZolam [Xanax] 0.25 mg PO BID PRN PRN 12/29/17 Pantoprazole Sodium [Protonix] 40 mg PO DAILY 12/30/17 Amlodipine [Norvasc] 5 mg PO DAILY #30 tab 12/31/17 The following prescriptions were given: Amlodipine [Norvasc] 5 mg PO DAILY #30 tab Primary Care Physician: Annetta Carey DO [Primary Care Provider] - Please follow up with your Primary Care Physician in: in 3-5 days for repeat BMP Please Follow Up With: Stephen Del Rio MD When: in 2 days Please Follow Up With: Darwin Helm MD When: next week Proposed Discharge Date: 12/31/17
--- NOTE | 2017-12-31 08:02 | PCM.DC.SUM ---
Discharge Date and Diagnosis - Problem List Patient Problems: Active and Suspected Problems Acute kidney injury (Acute) Vomiting (Acute) Date of Admission: 12/30/17 Date of Discharge: 12/31/17 - Primary Discharge Diagnosis Active and Suspected Problems Acute kidney injury (Acute) Vomiting (Acute) - Secondary Discharge Diagnosis Chronic Problems Chronic anemia (Chronic) Sciatic nerve pain (Chronic) GI bleed (Chronic) Normochromic normocytic anemia (Chronic) Colon cancer metastasized to liver (Chronic) Colon cancer metastasized to lung (Chronic) Adenocarcinoma of sigmoid colon (Chronic) HTN (hypertension) (Chronic) Diabetes mellitus, type II (Chronic) Depression with anxiety (Chronic) Hospital Course and Treatment Operations: None Summary of Care Provided: Patient is a 72-year-old lady with history of stage IV adenocarcinoma involving the colon with metastases to the lungs presented with progressive generalized weakness associated with nausea vomiting. Patient was found to have acute kidney injury admitted to regular nursing floor for subsequent management 1. Acute kidney injury secondary to ATN from dehydration on IV fluids with monitoring of electrolyte. Kidney function did improve prior to discharge 2. Intractable nausea vomiting treated symptomatically 3. Adenocarcinoma involving the colon with metastases to the lungs followed by Dr. Helm as outpatient 4. Anemia secondary to anemia of malignancy monitoring H&H with plans to transfuse if patient becomes symptomatic or hemoglobin falls below 7 5. Diabetes mellitus type 2 patient is on Levemir did continue also placed on Accu-Cheks before meals and at bedtime with sliding scale coverage 6. Hypertension-blood pressure controlled, home medications continued with dose adjustment as needed 7. Depression with anxiety 8. Moderate protein calorie malnutrition 9. Thrombocytopenia chemo induced 10. DVT prophylaxis chemical prophylaxis was avoided in view of patient low platelet count Discharge Diet: 1800 Calorie Control Diet Discharge Activity: Return to Normal Activity, May not drive while taking narcotic pain medications. Home Medications: Medications to take at Discharge Insulin Aspart [Novolog Flexpen] 12 units SC PRN PRN 12/08/16 Insulin Detemir [Levemir FlexPen] 100 units SC DAILY 09/23/17 Venlafaxine XR [Effexor Xr] 37.5 mg PO DAILY 10/01/17 Oxycodone [Oxyir] 5 mg PO Q6H PRN PRN 7 Days #20 tab 11/11/17 ALPRAZolam [Xanax] 0.25 mg PO BID PRN PRN 12/29/17 Pantoprazole Sodium [Protonix] 40 mg PO DAILY 12/30/17 Amlodipine [Norvasc] 5 mg PO DAILY #30 tab 12/31/17 Following Prescrptions Were Given to Patient: Amlodipine [Norvasc] 5 mg PO DAILY #30 tab Primary Care Physician: Annetta Carey DO [Primary Care Provider] - Please follow up with your Primary Care Physician in: in 3-5 days for repeat BMP Please Follow Up With: Stephen Del Rio MD When: in 2 days Please Follow Up With: Darwin Helm MD When: next week Disposition: Home Minutes spent on discharge:: 35 Patient Condition:: Stable Medical Necessity - Tobacco Use Smoking Status: Never smoker Meaningful Use Info Meaningful Use Diagnoses (Choose all that apply): None applicable Code Visit Inpatient E&M: 67834 Disch Hosp
[2017-12-31 08:30] VITALS: BP 115/49; PULSE 60; RESP 20; TEMP 37.2; O2SAT 96
[2017-12-31] MEDS: Ondansetron 4 MG/2 ML Vial IV (09:24)
[2017-12-31] MEDS: Pantoprazole Sodium 40 MG Tablet PO (10:30)
[2017-12-31] MEDS: Venlafaxine XR 37.5 MG Capsule PO (10:30)
[2017-12-31] MEDS: Famotidine 20 MG Tablet PO (10:30)
[2017-12-31 10:46] LABS: Bedside Glucose 123 mg/dL (70-110)
[2017-12-31] MEDS: 0.9% NaCl VAD Flush 10 ML IV (13:15)
== END 2017-12-31 13:35 | disposition home or self-care (01) ==
LOC: ED 23:48 → MS2 12-30 00:37
PROVIDERS: Internal Medicine Hematology & Oncology; Admitting Provider Internal Medicine; Emergency Provider Emergency Medicine; Family Provider Internal Medicine; PCP Internal Medicine; Visit Provider Internal Medicine
DX: N17.9 Acute kidney failure, unspecified (principal); R11.2 Nausea with vomiting, unspecified; I10 Essential (primary) hypertension; E11.9 Type 2 diabetes mellitus without complications; C18.9 Malignant neoplasm of colon, unspecified; C78.7 Secondary malignant neoplasm of liver and intrahepatic bile duct; C78.00 Secondary malignant neoplasm of unspecified lung; D63.8 Anemia in other chronic diseases classified elsewhere; N17.0 Acute kidney failure with tubular necrosis; E86.0 Dehydration; F41.8 Other specified anxiety disorders; E44.0 Moderate protein-calorie malnutrition; D69.59 Other secondary thrombocytopenia; T45.1X5A Adverse effect of antineoplastic and immunosuppressive drugs, initial encounter; M54.30 Sciatica, unspecified side; Z79.899 Other long term (current) drug therapy; Z79.84 Long term (current) use of oral hypoglycemic drugs; Z79.4 Long term (current) use of insulin; Z68.27 Body mass index [BMI] 27.0-27.9, adult
CPT/HCPCS: 36415; 36591; 80048; 81001; 82962; 83735; 85025; 85027; 85610; 85730; 96361; 96374; 96375; 96376; 97162; 97166; 97802; 99218; 99283; J7030; A4216; G0378; J2405